=== PATIENT | female | born 1970 | race Caucasian/White ===

== ENCOUNTER → 2018-01-07 | Day surgery (SDC) | payer BC ==
[~2018-01-07] MED LIST: ACETAMINOPHEN 1000 MG/100 ML 100 ML IV ONE; ACETAMINOPHEN 1000 MG/100 ML IV ONE; ATENOLOL50 MG PO; ATORVASTATIN CA20 MG PO; BACITRACIN 50,000 UNIT VIAL ONE; BUPIVACAINE 0.25% 30ML SDV INJ ONE; CEFAZOLIN SOD 1 GM VIAL ONE; DEXAMETHASONE SOD PHOS INJ 4 MG/ML VIAL ONE; EPINEPHRINE HCL INJ 1 MG/ML AMP ONE; FENTANYL CITRATE/PF 100MCG/2 ML INJ ONE; LEVOTHYROXINE50 MCG PO; LIDOCAINE HCL 1% LOCAL INJ 20 ML VIAL ONE; LIDOCAINE HCL 2% LOCAL INJ 5 ML SDV VIAL INJ ONE; MELATONIN3 MG PO; MELOXICAM7.5 MG PO; MIDAZOLAM HCL 2 MG/2 ML VIAL ONE; MONTELUKAST SOD10 MG PO; MORPHINE SULFATE 2 MG/ML SYR ONE; OMEPRAZOLE40 MG PO; ONDANSETRON HCL INJ 2 MG/ML VIAL ONE; PROPOFOL IV EMULSION 10 MG/ML 20 ML VIAL ONE; ROCURONIUM BROMIDE 10 MG/ML 5ML VIAL ONE; SEVOFLURANE INHAL SOLN 250 ML PEN BTL ONE; SODIUM CHLORIDE 0.9% 500ML 500 ML ONE; TAMOXIFEN CITRA10 MG PO; ULTRACET TABLE1 EACH PO; VITAMIN D32000 UNIT PO; ZYRTEC10 M3 PO
[2018-01-07 13:45] LABS: BASOPHILS % 0.5 % (0.0-1.0); EOSINOPHILS # (AUTO) 0.1 (0.0-0.4); EOSINOPHILS % 1.1 % (0.0-6.0); HEMATOCRIT 36.5 % (34.2-44.1); HEMOGLOBIN 12.4 g/dL (12.0-16.0); LYMPHOCYTES # (AUTO) 2.1 (1.0-3.2); LYMPHOCYTES % 32.5 % (18.0-39.1); MEAN CORPUSCULAR HEMOGLOBIN 30.8 pg (28-32); MEAN CORPUSCULAR VOLUME 90.6 fL (81-99); MONOCYTES # (AUTO) 0.4 (0.2-0.8); MONOCYTES % 6.8 % (4.4-11.3); NEUTROPHILS # (AUTO) 3.8 (2.1-6.9); NEUTROPHILS % 58.8 % (38.7-80.0); PLATELET COUNT 270 x10e3/uL (140-360); RED BLOOD COUNT 4.03 x10e6/uL (3.6-5.1); RED CELL DISTRIBUTION WIDTH 12.3 % (11.7-14.4)
[2018-01-07 13:56] LABS: INR 0.98; PROTHROMBIN TIME 12.2 seconds (11.9-14.5)
[2018-01-07 13:57] LABS: PARTIAL THROMBOPLASTIN TIME 24.8 seconds (23.8-35.5)
[2018-01-07 14:06] LABS: ALANINE AMINOTRANSFERASE 22 IU/L (0-55); ALBUMIN 3.8 g/dL (3.5-5.0); ALBUMIN/GLOBULIN RATIO 1.1 (0.8-2.0); ALKALINE PHOSPHATASE 52 IU/L (40-150); ANION GAP 18.4 mmol/L (8-16); BLOOD UREA NITROGEN 10 mg/dL (7-26); BUN/CREATININE RATIO 12 (6-25); CALCIUM 9.3 mg/dL (8.4-10.2); CARBON DIOXIDE 20 mmol/L (22-29); CHLORIDE 106 mmol/L (98-107); CREATININE, SERUM 0.82 mg/dL (0.57-1.11); EST GLOMERULAR FILTRATION RATE > 60 ML/MIN (60-); GLUCOSE 103 mg/dL (74-118); POTASSIUM 4.4 mmol/L (3.5-5.1); SODIUM 140 mmol/L (136-145)
--- NOTE | 2018-01-10 15:55 | Operative Report ---
DATE OF PROCEDURE: January 07, 2018 PREOPERATIVE DIAGNOSES 1. History of left breast cancer. 2. Acquired absence of left breast. 3. Ruptured left breast tissue route cdl driver. POSTOPERATIVE DIAGNOSES 1. History of left breast cancer. 2. Acquired absence of left breast. 3. Ruptured left breast tissue route cdl driver. PROCEDURES PERFORMED 1. Removal of ruptured left breast tissue route cdl driver. 2. Revision of left breast reconstruction. 3. Left breast reconstruction with tissue route cdl driver, Paoli CPX4, medium height, 550 mL filled to 250 mL. SN number [id number]. AlloDerm regenerative tissue matrix, Contour medium thick ready to use, lot number [id number]. ANESTHESIA: General endotracheal. INDICATIONS FOR SURGERY: This is a 47-year-old female who last year underwent left breast mastectomy and immediate reconstruction with tissue route cdl driver and AlloDerm. The patient subsequently had radiation therapy to the left breast. After radiation, it was noted that the tissue route cdl driver on the left breast had ruptured. The patient is currently presenting for removal of ruptured left breast tissue route cdl driver, revision of left breast reconstruction and left breast reconstruction with new tissue route cdl driver, and AlloDerm. Risks, alternatives and possible complications of the above procedure were explained to the patient. These include, but are not limited to bleeding, infection, scarring, skin flap necrosis, capsular contracture, breast asymmetry, exposure or failure of tissue route cdl driver, wound dehiscence, unsatisfactory aesthetic result, and possible need for further surgery. The patient had an opportunity to ask questions and have her questions answered, and agreed to proceed with the proposed procedure. PROCEDURE IN DETAIL: The patient was marked in the preoperative holding area. She was then taken to the operating room and placed supine on the operating table. After adequate general anesthesia, the patient's bilateral breasts were prepped and draped in the usual surgical fashion. Attention was turned to the patient's left breast. An incision was made along the previous mastectomy incision with a #15 blade. Tissue was dissected down to breast capsule. Once the breast capsule was entered, it was noted again that the left breast tissue route cdl driver was ruptured. It was removed, and the breast pocket was irrigated with normal saline with antibiotic solution. A thick capsule was noted in the breast pocket. Revision of breast and reconstruction was performed by removing a large portion of the thickened breast capsule, especially medially and superiorly, but some also like laterally. The portion of the removed breast capsule was sent to pathology for permanent. The breast pocket was again irrigated with normal saline with antibiotic solution. The AlloDerm which was ready to use, Contour medium thick was then sutured along the inframammary fold with interrupted 2-0 PDS sutures. A #7 flat GRAHAM was placed through the previous drain hole and sutured in place with 2-0 nylon suture. The tissue route cdl driver which was Paoli CPX4 550 mL was filled with 100 mL of normal injectable saline, and placed in the subpectoral pocket. The AlloDerm was then sutured to the pectoralis major muscle with interrupted 2-0 PDS sutures. The mastectomy incision was then closed with 2 layers of interrupted 3-0 Vicryl sutures, and a running subcuticular 3-0 PDS suture. At the end of the case, all skin flaps appeared viable. The incision was covered with Xeroform, ABD pads, and the patient was wrapped with a large 6-inch Aron wrap. There were no immediate complications. The needle and instrument count was correct at the end of the case. She was transferred extubated to the recovery room. Job#: [id number] MANNY
== END | disposition home or self-care (01) ==
LOC: OR 12:22
PROVIDERS: ATTEND Plastic Surgery
DX: T85.898A Other specified complication of other internal prosthetic devices, implants and grafts, initial encounter (principal); I10 Essential (primary) hypertension; K21.9 Gastro-esophageal reflux disease without esophagitis; Y83.4 Other reconstructive surgery as the cause of abnormal reaction of the patient, or of later complication, without mention of misadventure at the time of the procedure; Z85.3 Personal history of malignant neoplasm of breast; Z90.12 Acquired absence of left breast and nipple; Z92.3 Personal history of irradiation
CPT/HCPCS: 15777; 19340; 36415; 80053; 84702; 85025; 85610; 85730; 88302; 93005; 99070; J0690; J1100; J2001; J2250; J2270; J2405; J7040; Q4116; 88304; J0171

== ENCOUNTER 2018-02-25 06:26 | Observation (INO) | payer BC ==
[~2018-02-25] VITALS: Ht 165.1 cm; Wt 109.1 kg
[~2018-02-25 06:26] MED LIST changes: -ACETAMINOPHEN 1000 MG/100 ML 100 ML IV ONE; -ACETAMINOPHEN 1000 MG/100 ML IV ONE; -BACITRACIN 50,000 UNIT VIAL ONE; -BUPIVACAINE 0.25% 30ML SDV INJ ONE; -CEFAZOLIN SOD 1 GM VIAL ONE; -DEXAMETHASONE SOD PHOS INJ 4 MG/ML VIAL ONE; -EPINEPHRINE HCL INJ 1 MG/ML AMP ONE; -FENTANYL CITRATE/PF 100MCG/2 ML INJ ONE; -LIDOCAINE HCL 1% LOCAL INJ 20 ML VIAL ONE; -LIDOCAINE HCL 2% LOCAL INJ 5 ML SDV VIAL INJ ONE; -MIDAZOLAM HCL 2 MG/2 ML VIAL ONE; -MORPHINE SULFATE 2 MG/ML SYR ONE; -ONDANSETRON HCL INJ 2 MG/ML VIAL ONE; -PROPOFOL IV EMULSION 10 MG/ML 20 ML VIAL ONE; -ROCURONIUM BROMIDE 10 MG/ML 5ML VIAL ONE; -SEVOFLURANE INHAL SOLN 250 ML PEN BTL ONE; -SODIUM CHLORIDE 0.9% 500ML 500 ML ONE
[2018-02-25] MEDS ORDERED: CEFAZOLIN SOD 1 GM VIAL ONE ×2 (06:53→17:04)
[2018-02-25] MEDS ORDERED: AMOXICILLIN (07:29)
[2018-02-25 07:58] LABS: BASOPHILS % 0.4 % (0.0-1.0); EOSINOPHILS # (AUTO) 0.2 (0.0-0.4); EOSINOPHILS % 2.9 % (0.0-6.0); HEMATOCRIT 35.3 % (34.2-44.1); HEMOGLOBIN 11.8 g/dL (12.0-16.0); LYMPHOCYTES # (AUTO) 1.8 (1.0-3.2); LYMPHOCYTES % 32.6 % (18.0-39.1); MEAN CORPUSCULAR HEMOGLOBIN 30.6 pg (28-32); MEAN CORPUSCULAR HGB CONC 33.4 g/dL (31-35); MEAN CORPUSCULAR VOLUME 91.5 fL (81-99); MONOCYTES # (AUTO) 0.4 (0.2-0.8); MONOCYTES % 7.5 % (4.4-11.3); NEUTROPHILS # (AUTO) 3.2 (2.1-6.9); NEUTROPHILS % 56.2 % (38.7-80.0); PLATELET COUNT 294 x10e3/uL (140-360); RED BLOOD COUNT 3.86 x10e6/uL (3.6-5.1); RED CELL DISTRIBUTION WIDTH 12.9 % (11.7-14.4)
[2018-02-25 08:16] LABS: INR 0.79; PROTHROMBIN TIME 11.7 seconds (11.9-14.5)
[2018-02-25 08:17] LABS: ALANINE AMINOTRANSFERASE 18 IU/L (0-55); ALBUMIN 3.6 g/dL (3.5-5.0); ALKALINE PHOSPHATASE 55 IU/L (40-150); ANION GAP 17.6 mmol/L (8-16); BLOOD UREA NITROGEN 11 mg/dL (7-26); BUN/CREATININE RATIO 14 (6-25); CALCIUM 8.9 mg/dL (8.4-10.2); CARBON DIOXIDE 23 mmol/L (22-29); CHLORIDE 105 mmol/L (98-107); CREATININE, SERUM 0.79 mg/dL (0.57-1.11); EST GLOMERULAR FILTRATION RATE > 60 ML/MIN (60-); GLUCOSE 112 mg/dL (74-118); PARTIAL THROMBOPLASTIN TIME 24.9 seconds (23.8-35.5); POTASSIUM 4.6 mmol/L (3.5-5.1); SODIUM 141 mmol/L (136-145)
[2018-02-25] MEDS ORDERED: BACITRACIN 50,000 UNIT VIAL ONE (08:37)
[2018-02-25] MEDS ORDERED: HYDROMORPHONE 2MG/ML 2 MG/ML ML ONE (09:42)
[2018-02-25] MEDS ORDERED: SODIUM CHLORIDE 0.9% 500ML 500 ML ONE (11:48)
[2018-02-25] MEDS ORDERED: FENTANYL CITRATE/PF 100MCG/2 ML INJ ONE ×2 (14:18→17:29)
[2018-02-25] MEDS ORDERED: MORPHINE SULFATE 2 MG/ML SYR IV PRN (15:15)
[2018-02-25 15:27] VITALS: BP 130/79
[2018-02-25] MEDS ORDERED: ONDANSETRON HCL INJ 2 MG/ML VIAL IV PRN (15:30)
[2018-02-25] MEDS ORDERED: TRAMADOL/APAP 37.5MG-325MG TAB PO PRN (15:30)
[2018-02-25 15:40] VITALS: BP 130/79
[2018-02-25] MEDS: DEXTROSE 5%/0.45% SOD CHL 1,000 ML IV SCH (16:13)
[2018-02-25 16:15] VITALS: BP 127/71
[2018-02-25] MEDS: CYCLOBENZAPRINE HCL 10 MG TAB PO PRN (17:00)
[2018-02-25] MEDS ORDERED: ACETAMINOPHEN 1000 MG/100 ML IV ONE (17:04)
[2018-02-25] MEDS ORDERED: PROPOFOL IV EMULSION 10 MG/ML 20 ML VIAL ONE (17:04)
[2018-02-25] MEDS ORDERED: LIDOCAINE HCL 2% LOCAL INJ 5 ML SDV VIAL INJ ONE (17:04)
[2018-02-25] MEDS ORDERED: DEXAMETHASONE SOD PHOS INJ 4 MG/ML VIAL ONE (17:04)
[2018-02-25] MEDS ORDERED: ROCURONIUM BROMIDE 10 MG/ML 5ML VIAL ONE (17:04)
[2018-02-25] MEDS ORDERED: ONDANSETRON HCL INJ 2 MG/ML VIAL ONE (17:04)
[2018-02-25] MEDS ORDERED: SEVOFLURANE INHAL SOLN 250 ML PEN BTL ONE (17:04)
[2018-02-25] MEDS ORDERED: MIDAZOLAM HCL 2 MG/2 ML VIAL ONE (17:29)
[2018-02-25] MEDS: HYDROCODONE/APAP 10MG-325MG TAB PO PRN ×2 (17:45→21:52)
[2018-02-25] MEDS ORDERED: CEFAZOLIN SOD 1 GM VIAL IV SCH (18:00)
[2018-02-25 20:00] VITALS: BP 150/72
[2018-02-25] MEDS ORDERED: DIPHENHYDRAMINE HCL 25 MG CAP PO PRN (20:00)
[2018-02-25] MEDS ORDERED: ATORVASTATIN 20 MG TAB PO SCH (21:00)
[2018-02-25] MEDS ORDERED: MELATONIN 3 MG TAB PO SCH (21:00)
[2018-02-25] MEDS ORDERED: MELATONIN 5 MG TABLET PO SCH (21:00)
[2018-02-25] MEDS ORDERED: CEFAZOLIN SOD 1 GM/D5W 50ML 50 ML IV SCH (22:00)
[2018-02-26] VITALS: BP 111/66
[2018-02-26] MEDS: DEXTROSE 5%/0.45% SOD CHL 1,000 ML IV SCH ×2 (02:32→11:15)
[2018-02-26] MEDS: CYCLOBENZAPRINE HCL 10 MG TAB PO PRN (02:35)
[2018-02-26] MEDS: HYDROCODONE/APAP 10MG-325MG TAB PO PRN ×2 (03:10→09:30)
[2018-02-26 04:00] VITALS: BP 104/58
[2018-02-26] MEDS ORDERED: LEVOTHYROXINE SODIUM 50 MCG TAB PO SCH (06:00)
[2018-02-26] MEDS ORDERED: PANTOPRAZOLE SOD 40 MG TABEC PO SCH (07:30)
[2018-02-26 08:06] VITALS: BP 141/71
[2018-02-26] MEDS ORDERED: TAMOXIFEN CITRATE 10 MG TAB PO SCH (09:00)
[2018-02-26] MEDS ORDERED: CHOLECALCIFEROL 1,000 UNIT TAB PO SCH (09:00)
[2018-02-26] MEDS ORDERED: MORPHINE SULFATE INJ 4 MG/ML INJ IV PRN (09:00)
[2018-02-26] MEDS ORDERED: LORATADINE 10 MG TAB PO SCH (09:00)
[2018-02-26] MEDS ORDERED: ATENOLOL 50 MG TAB PO SCH (09:00)
[2018-02-26] MEDS ORDERED: MONTELUKAST SODIUM 10 MG TAB PO SCH (09:00)
[2018-02-26 09:30] VITALS: BP 141/71
[2018-02-26] MEDS ORDERED: NORCO 10-325 T1 EACH PO (11:36)
[2018-02-26] MEDS ORDERED: CYCLOBENZAPRINE5 MG PO (11:37)
[2018-02-26] MEDS ORDERED: CLINDAMYCIN HC150 MG PO (11:39)
[2018-02-26 13:00] VITALS: BP 132/72
[2018-02-26] MEDS ORDERED: ATORVASTATIN 40 MG TAB PO SCH (21:00)
--- OUTSIDE RECORDS SUMMARY | 2018-03-16 07:34 | XMS REPORT | Clinical Summary ---
Author Author [facility] Organization [facility] Address Unknown Phone Unavailable Care Team Providers Care Psychological Operations Specialist Name Role Phone Aftab Dubois MD PCP Allergies Active Allergy Reactions Severity Noted Date Comments Other Other (See Comments) 09/15/2016 STERI STRIP-BLISTER Current Medications Prescription Sig. Disp. Refills Start End Date Status Date atenolol (TENORMIN) 50 MG Take 50 mg by mouth Active tablet daily. atorvastatin (LIPITOR) 40 Take 40 mg by mouth Active MG tablet nightly. buPROPion SR (WELLBUTRIN Take 150 mg by mouth Active SR) 150 MG 12 hr tablet daily. cetirizine (ZyrTEC) 10 MG Take 10 mg by mouth Active tablet daily. meloxicam (MOBIC) 7.5 mg Take 7.5 mg by mouth Active tablet daily. montelukast (SINGULAIR) Take 10 mg by mouth Active 10 mg tablet nightly. omeprazole (PriLOSEC) 40 Take 40 mg by mouth Active MG capsule daily. traMADol-acetaminophen Take 1 tablet by mouth Active (ULTRACET) 37.5-325 mg every 6 (six) hours as per tablet needed for moderate pain. tamoxifen (NOLVADEX) 20 Take by mouth daily. Active MG chemo tablet cholecalciferol, vitamin Take 1,000 Units by mouth Active D3, (VITAMIN D3) 1,000 daily. unit tablet gabapentin (NEURONTIN) Take 300 mg by mouth Active 300 mg capsule nightly - one time. melatonin 10 mg capsule Take by mouth. Active cyclobenzaprine Take 10 mg by mouth 3 08/28/19 Discontin (FLEXERIL) 10 mg tablet (three) times a day as 18 ued needed for muscle spasms. HYDROcodone-acetaminophen Take 1 tablet by mouth 08/28/19 Discontin (NORCO) 10-325 mg per every 6 (six) hours as 18 ued tablet needed for moderate pain. Active Problems Not on file Encounters Date Type Specialty Care Team Description 09/01/2017 Transcribe Access Silver Reinoso MD Arthralgia of hip, Orders unspecified laterality (Primary Dx) 08/27/2017 Hospital Radiology Chelsy Zamarripa, Personal history of Encounter malignant neoplasm of breast 07/30/2017 Transcribe Access Chelsy Zamarripa, Personal history of Orders malignant neoplasm of breast (Primary Dx) after 02/24/2017 Family History Medical History Relation Name Comments Basal cell carcinoma Brother Breast cancer Cousin Stomach cancer Cousin Melanoma Mother Heart attack Paternal Grandfather Prostate cancer Paternal Uncle Relation Name Status Comments Brother Cousin Cousin Mother Paternal Grandfather Paternal Uncle Social History Tobacco Use Types Packs/Day Years Used Date Never Smoker Smokeless Tobacco: Never Used Alcohol Use Drinks/Week oz/Week Comments Yes 1 Glasses of 0.6 4 GLASS OF WINE PER WEEK wine Sex Assigned at Date Recorded Not on file Last Filed Vital Signs Vital Sign Reading Time Taken Blood Pressure 153/71 08/27/2017 1:45 PM CDT Pulse 69 08/27/2017 1:45 PM CDT Temperature 37.2 C (99 F) 08/27/2017 12:45 PM CDT Respiratory Rate 18 08/27/2017 1:45 PM CDT Oxygen Saturation 97% 08/27/2017 1:45 PM CDT Inhaled Oxygen - - Concentration Weight 100 kg (221 lb 4.8 oz) 08/27/2017 9:51 AM CDT Height 167.6 cm (5' 6") 08/27/2017 9:51 AM CDT Body Mass Index 35.72 08/27/2017 9:51 AM CDT Plan of Treatment Health Maintenance Due Date Last Done Comments CERVICAL CANCER SCREENING 10/20/1991 INFLUENZA VACCINE 12/30/2017 Implants Implanted Type Area Petroleum Geologist Device Expiration Model / Identifier Date Serial / Lot Port [id number] Smart Port W/ Dtchd Implantabl N/A: N/A [employer] [id number] 0.4ml 6.6fr 55cm 1.4x2.2mm - [employer] / [id number] Ports or / Implanted: 09/15/2016 (Quantity not Accessorie on file) s Procedures Procedure Name Priority Date/Time Associated Diagnosis Comments IR PORT REMOVAL Routine 08/27/2017 Personal history of Results for this 1:01 PM CDT malignant neoplasm of procedure are in the breast results section. ZZESTIMATED GFR Routine 08/27/2017 Results for this 9:35 AM CDT procedure are in the results section. HCG QUALITATIVE, SERUM Routine 08/27/2017 Results for this SCREEN 9:35 AM CDT procedure are in the results section. PROTHROMBIN TIME WITH INR Routine 08/27/2017 Results for this 9:35 AM CDT procedure are in the results section. HC COMPLETE BLD COUNT Routine 08/27/2017 Results for this W/AUTO DIFF 9:35 AM CDT procedure are in the results section. BASIC METABOLIC PANEL Routine 08/27/2017 Results for this 9:35 AM CDT procedure are in the results section. after 02/24/2017 Results * IR Port Removal (08/27/2017 1:01 PM) Narrative Performed At EXAMINATION:IR PORT REMOVAL HM RADIANT REASON FOR EXAMINATION:Z85.3 Personal history of malignant neoplasm of breast, Z85.3 COMPARISON: None TECHNIQUE: The patient was brought to the vascular suite. An informed consent was obtained. The skin overlying the right infraclavicular region was prepped and draped in a sterile manner. The skin was anesthetized 1% lidocaine. Using blunt dissection, the chest port was dissected freely. The chest port was then removed. The patient tolerated the procedure well. Hemostasis was obtained. The patient will be discharged from the radiology department in stable condition. CONSCIOUS SEDATION: The patient was given conscious sedation with fentanyl and Versed intravenously. Constant nurse observation was performed.Throughout the conscious sedation duration, the patient was continuously monitored by a registered nurse.The physician intraservice [id number] time with the patient was 20 minutes. Fluoroscopy time:0.1 minutes number of fluoroscopic images obtained: 2 IMPRESSION: 1. Removal of aRIGHT chest port 2. Conscious sedation was given as described above. 3. Constant nurse observation was performed. [id number] Procedure Note Hm Interface, Radiology Results Incoming - 08/27/2017 5:10 PM CDT EXAMINATION: IR PORT REMOVAL REASON FOR EXAMINATION: Z85.3 Personal history of malignant neoplasm of breast, Z85.3 COMPARISON: None TECHNIQUE: The patient was brought to the vascular suite. An informed consent was obtained. The skin overlying the right infraclavicular region was prepped and draped in a sterile manner. The skin was anesthetized 1% lidocaine. Using blunt dissection, the chest port was dissected freely. The chest port was then removed. The patient tolerated the procedure well. Hemostasis was obtained. The patient will be discharged from the radiology department in stable condition. CONSCIOUS SEDATION: The patient was given conscious sedation with fentanyl and Versed intravenously. Constant nurse observation was performed. Throughout the conscious sedation duration, the patient was continuously monitored by a registered nurse. The physician intraservice hlfz-nl-[id number] time with the patient was 20 minutes. Fluoroscopy time: 0.1 minutes number of fluoroscopic images obtained: 2 IMPRESSION: 1. Removal of aRIGHT chest port 2. Conscious sedation was given as described above. 3. Constant nurse observation was performed. [id number] Performing Organization Address City/[facility]/Zipcode Phone Number [facility] [address] [place] [address] * Estimated GFR (08/27/2017 9:35 AM) GFR Non Af Amer 67 mL/min/1.73 m2 [facility] DEPARTMENT OF PATHOLOGY AND GENOMIC MEDICINE GFR Af Amer 81 mL/min/1.73 m2 [facility] DEPARTMENT OF Comment: PATHOLOGY AND Chronic kidney disease: <60 GENOMIC MEDICINE mL/min/1.73m2 Kidney failure: <15 mL/min/1.73m2 The estimated GFR is calculated from the IDMS-traceable Modification of Diet in Renal Disease Equation. The accuracy of the calculation is poor when the creatinine is normal. Calculated values >90 mL/min/1.73m2 are not reported. This equation has not been validated in children (<18 years), women, the elderly (>70 years), or ethnic groups other than Caucasians and Americans. Specimen Plasma specimen Performing Organization Address City/[facility]/Zipcode Phone Number [address] [place] [address] PATHOLOGY AND GENOMIC MEDICINE * Prothrombin time with INR (08/27/2017 9:35 AM) Prothrombin time 12.7 12.0 - 15.0 sec [facility] DEPARTMENT OF PATHOLOGY AND GENOMIC MEDICINE INR 0.9 [facility] DEPARTMENT OF Comment: PATHOLOGY AND The International Normalized GENOMIC MEDICINE Ratio (INR) is a therapeutic monitoring tool for patients who are stable on oral anticoagulant therapy. An INR of 2.0-3.0 is suggested for deep vein thrombosis/pulmonary embolism. Specimen Blood Performing Organization Address City/[facility]/Zipcode Phone Number [address] [place] [address] [facility] * CBC with platelet and differential (08/27/2017 9:35 AM) WBC 5.18 4.50 - 11.00 k/uL [facility] DEPARTMENT OF PATHOLOGY AND GENOMIC MEDICINE RBC 4.01 (L) 4.20 - 5.50 m/uL [facility] OF PATHOLOGY AND GENOMIC MEDICINE HGB 12.2 12.0 - 16.0 g/dL [facility] DEPARTMENT OF PATHOLOGY AND GENOMIC MEDICINE HCT 36.7 (L) 37.0 - 47.0 % [facility] DEPARTMENT OF PATHOLOGY AND GENOMIC MEDICINE MCV 91.5 82.0 - 100.0 fL [facility] DEPARTMENT OF PATHOLOGY AND GENOMIC MEDICINE MCH 30.4 27.0 - 34.0 pg [facility] DEPARTMENT OF PATHOLOGY AND GENOMIC MEDICINE MCHC 33.2 31.0 - 37.0 g/dL [facility] DEPARTMENT OF PATHOLOGY AND GENOMIC MEDICINE RDW - SD 41.9 37.0 - 55.0 fL [facility] DEPARTMENT OF PATHOLOGY AND GENOMIC MEDICINE MPV 8.7 (L) 8.8 - 13.2 fL [facility] DEPARTMENT OF PATHOLOGY AND GENOMIC MEDICINE Platelet count 255 150 - 400 k/uL [facility] DEPARTMENT OF PATHOLOGY AND GENOMIC MEDICINE Nucleated RBC 0.00 /100 WBC [facility] DEPARTMENT OF PATHOLOGY AND GENOMIC MEDICINE Neutrophils 62.6 39.0 - 69.0 % [facility] DEPARTMENT OF PATHOLOGY AND GENOMIC MEDICINE Lymphocytes 29.5 25.0 - 45.0 % [facility] DEPARTMENT OF PATHOLOGY AND GENOMIC MEDICINE Monocytes 5.8 0.0 - 10.0 % [facility] DEPARTMENT OF PATHOLOGY AND GENOMIC MEDICINE Eosinophils 1.7 0.0 - 5.0 % [facility] DEPARTMENT OF PATHOLOGY AND GENOMIC MEDICINE Basophils 0.4 0.0 - 1.0 % [facility] DEPARTMENT OF PATHOLOGY AND GENOMIC MEDICINE Specimen Blood Performing Organization Address City/[facility]/Zipcode Phone Number [place] [address] [address] PATHOLOGY AND [employer] [facility] * hCG qualitative, serum screen (08/27/2017 9:35 AM) hCG qualitative, serum NegativeComment: [facility] DEPARTMENT OF [id number] PATHOLOGY AND GENOMIC MEDICINE Specimen Blood Performing Organization Address [facility]/Zipcode Phone Number [facility] [address] [place] [address] PATHOLOGY AND GENOMIC MEDICINE * Basic metabolic panel (08/27/2017 9:35 AM) Sodium 142 135 - 148 mEq/L [facility] DEPARTMENT OF PATHOLOGY AND GENOMIC MEDICINE Potassium 4.7 3.5 - 5.0 mEq/L [facility] DEPARTMENT OF PATHOLOGY AND GENOMIC MEDICINE Chloride 104 98 - 112 mEq/L [facility] DEPARTMENT OF PATHOLOGY AND GENOMIC MEDICINE CO2 27 24 - 31 mEq/L [facility] DEPARTMENT OF PATHOLOGY AND GENOMIC MEDICINE Anion gap 11 7 - 15 mEq/L [facility] DEPARTMENT OF Comment: PATHOLOGY AND Starting from August [facility] MEDICINE , anion gap calculation no longer incorporates potassium. Please note the change. BUN 14 6 - 20 mg/dL [facility] DEPARTMENT OF PATHOLOGY AND GENOMIC MEDICINE Creatinine 0.9 0.5 - 0.9 mg/dL [facility] DEPARTMENT OF PATHOLOGY AND GENOMIC MEDICINE Glucose 105 (H) 65 - 99 mg/dL [facility] DEPARTMENT OF PATHOLOGY AND GENOMIC MEDICINE Calcium 9.3 8.3 - 10.2 mg/dL [facility] DEPARTMENT OF PATHOLOGY AND GENOMIC MEDICINE Specimen Plasma specimen Performing Organization Address City/[facility] [email or web address] Phone Number [facility] [address] [place] [address] PATHOLOGY AND GENOMIC MEDICINE after 02/24/2017 Insurance Payer Benefit Subscriber ID Type Phone Address Plan / Group BCBS BCBS xxxxxxxxxxxx PPO CHOICE PPO/[employer]SU[employer]O STORY Work: [id number] [address] [facility] [address] [place] [id number] Home:
--- OUTSIDE RECORDS SUMMARY | 2018-03-16 07:35 | XMS REPORT | Summary of Care ---
Author Author [facility] Address Unknown Phone Unavailable Encounter HQ Lauren(FIN) [id number] Date(s): 07/07/17 - 07/07/17 [facility] Outpatient Imaging [facility] [address] [place] [phone] Encounter Diagnosis Malignant neoplasm of upper-outer quadrant of left female breast (Final) - 07/10/17 Acquired absence of left breast and nipple (Final) - Estrogen receptor positive status [ER+] (Final) - Family history of malignant neoplasm of breast (Final) - Discharge Disposition: Home or Self Care Attending Physician: Maritza Lara MD Vital Signs No data available for this section Problem List Condition Effective Dates Status Health Status Informant Surgery Active follow-up(Confirmed) Allergies, Adverse Reactions, Alerts Substance Reaction Severity Status NKDA Active Medications No data available for this section Results No data available for this section Immunizations No data available for this section Procedures Procedure Date Related Diagnosis Body Site Status Biopsy of breast Completed Social History Social History Type Response Alcohol Current, Type Wine. Frequency: 3-5 times per week. Smoking Status Never smoker; Exposure to Tobacco Smoke None; Cigarette Smoking Last 365 Days No; Reg Smoking Cessation Counseling No entered on: 08/28/16 Assessment and Plan No data available for this section
--- OUTSIDE RECORDS SUMMARY | 2018-03-16 07:35 | XMS REPORT | Summary of Care ---
Author Author [facility] Organization [facility] Address Unknown Phone Unavailable Encounter HQ Encntr_alias(FIN) [id number] Date(s): 08/11/16 - 08/11/16 [facility] [address] [place] [address]- Discharge Disposition: Home or Self Care Attending Physician: Chelsy Zamarripa MD Referring Physician: Physician, Non Associated MD Vital Signs No data available for this section Problem List No data available for this section Allergies, Adverse Reactions, Alerts No data available for this section Medications No data available for this section Results URINE CHEM Most recent to 1 oldest [Reference Range]: U Preg [Negative] Negative (08/11/16 12:50 PM) Immunizations No data available for this section Procedures No data available for this section Social History No data available for this section Assessment and Plan No data available for this section
--- OUTSIDE RECORDS SUMMARY | 2018-03-16 07:35 | XMS REPORT | Continuity of Care Document ---
Author Author [facility] Organization Interface Address Unknown Phone Unavailable Problems Problem Status Onset Date Classification Date Reported Comments Source Malignant neoplasm of upper-outer quadrant of left female breast 07/11/2017 10/13/2017 [facility] UNK Active 08/20/2016 [facility] Z85.3 PERSONAL HISTORY OF MALIGNANT NEOP Active 08/11/2016 [facility] C50.412 - MALIG NEOPLASM OF UPPER-OUTER Active 07/08/2016 [facility] Acquired absence of left breast and nipple 10/13/2017 [facility] Estrogen receptor positive status [ER+] 10/13/2017 [facility] Family history of malignant neoplasm of breast 10/13/2017 [facility] follow-up Active Problem 10/13/2017 [facility] Medications Medication Details Route Status Patient Instructions Ordering Provider Order Date Source Cyclobenzaprine hydrochloride 10 MG Oral Tablet [Flexeril] 10 mg=1 tab, PO, TID, PRN for spasm, # 30 tab, 0 Refill(s), given to patient Active 08/29/2016 [facility] Acetaminophen 325 MG / Hydrocodone Bitartrate 10 MG Oral Tablet [[place] 10/325] 1 tab, PO, Q4H, PRN for pain, X 4 day, # 24 tab, 0 Refill(s), given to patient Active 08/29/2016 [facility] Amoxicillin 875 MG / Clavulanate 125 MG Oral Tablet [Augmentin 875-mg] 875 mg=1 tab, PO, Q24H, X 10 day, # 10 tab, 0 Refill(s), given to patient Active 08/29/2016 [facility] Acetaminophen 300 MG / Codeine Phosphate 30 MG Oral Tablet 1 tab, PO, Q4H, PRN Pain, X 7 day, # 42 tab, 0 Refill(s) Active 08/29/2016 [facility] Ancef + sodium chloride 0.9% INJ 100 mL 1 gm, Route: IVPB, ABXQ8H, Dosing Weight 96.534, kg, Start date: 08/28/16 21:00:00 CDT, Duration: 2 doses or times, Stop date: 08/29/16 5:00:00 CDTNotes: (Same As: Mallika Bullock) MEDICATION WASTE Product Size: 1000 mg Product Wasted: ___ mg No Longer Active 08/29/2016 [facility] Zofran 4 mg, 2 mL, Route: IVP, Drug form: INJ, Q6H, Dosing Weight 96.534, kg, PRN Nausea, Start date: 08/28/16 13:29:00 CDT, Duration: 30 day, Stop date: 09/27/16 13:28:00 CDTNotes: (Same as: Zofran) MEDICATION WASTE Product Size: 4 mg Product Wasted: ___ mg No Longer Active 08/28/2016 [facility] Valium 5 mg, 1 tab, Route: PO, Drug form: TAB, Q8H, Dosing Weight 96.534, kg, PRN Anxiety, Start date: 08/28/16 13:28:00 CDT, Duration: 30 day, Stop date: 09/27/16 13:27:00 CDTNotes: (Same as: Valium) No Longer Active 08/28/2016 [facility] Acetaminophen 325 MG / Hydrocodone Bitartrate 5 MG Oral Tablet [[place] 5/325] 2 tab, Route: PO, Drug Form: TAB, Dosing Weight 96.534, kg, Q4H, PRN Pain Score 4-6, Start date: 08/28/16 13:27:00 CDT, Duration: 30 day, Stop date: 09/27/16 13:26:00 CDTNotes: (Same as: [place] 325/5) Do not exceed 4gm/day of acetaminophen. No Longer Active 08/28/2016 [facility] Morphine 2 mg, 1 mL, Route: IVP, Drug form: INJ, Q2H, Dosing Weight 96.534, kg, PRN Pain Score 4-6, Start date: 08/28/16 13:26:00 CDT, Duration: 30 day, Stop date: 09/27/16 13:25:00 CDTNotes: (Same as:MORPhine Sulfate) No Longer Active 08/28/2016 [facility] Sodium Chloride 0.154 MEQ/ML Injectable Solution 1,000 mL, Rate: 100 ml/hr, Infuse over: 10 hr, Route: IV, Dosing Weight 96.534 kg, Total Volume: 1,000, Start date: 08/28/16 13:24:00 CDT, Duration: 30 day, Stop date: 09/27/16 13:23:00 CDT No Longer Active 08/28/2016 [facility] Fentanyl 50 microgram, 1 mL, Route: IVP, Drug form: INJ, Q5Min, Dosing Weight 96.534, kg, PRN Pain Score 4-6, Start date: 08/28/16 13:18:00 CDT, Duration: 4 doses or times, Stop date: 08/29/16 0:00:00 CDT, Pedia tric DosingNotes: (Same as: Sublimaze) Preservative free. No Longer Active 08/28/2016 [facility] Hydromorphone 0.5 mg, Route: IVP, Q5Min, Dosing Weight 96.534, kg, PRN Pain Score 7-10, Start date: 08/28/16 13:17:00 CDT, Duration: 4 doses or times, Stop date: Limited # of times Inactive 08/28/2016 [facility] Flumazenil 0.2 mg, Route: IVP, PRN, Dosing Weight 96.534, kg, PRN Benzodiazepine Reversal, Initial dose, Start date: 08/28/16 13:17:00 CDT, Duration: 30 day, Stop date: 09/27/16 13:16:00 CDT Inactive 08/28/2016 [facility] Diphenhydramine 12.5 mg, Route: IVP, Drug form: INJ, Q6H, Dosing Weight 96.534, kg, PRN Itching, Start date: 08/28/16 13:17:00 CDT, Duration: 30 day, Stop date: 09/27/16 13:16:00 CDT Inactive 08/28/2016 [facility] Albuterol 0.83 MG/ML Inhalant Solution 2.49 mg, Route: NEB, Q20Min, Dosing Weight 96.534, kg, PRN Wheezing, Priority: STAT, Start date: 08/28/16 13:17:00 CDT, Duration: 30 day, Stop date: 09/27/16 13:16:00 CDT Inactive 08/28/2016 [facility] Naloxone 0.4 mg, Route: IVP, Q2MIN, Dosing Weight 96.534, kg, PRN Narcotic Reversal, Start date: 08/28/16 13:17:00 CDT, Duration: 8 doses or times, Stop date: Limited # of times Inactive 08/28/2016 [facility] Promethazine 6.25 mg, Route: IVPB, ONCE, Dosing Weight 96.534, kg, PRN Nausea & Vomiting, Start date: 08/28/16 13:17:00 CDT Inactive 08/28/2016 [facility] Ondansetron 4 mg, Route: IVP, ONCE, Dosing Weight 96.534, kg, PRN Nausea & Vomiting, Start date: 08/28/16 13:17:00 CDT Inactive 08/28/2016 [facility] Acetaminophen 1,000 mg, Route: PO, Drug form: TAB, ONCE, Dosing Weight 96.534, kg, PRN Pain Score 1-3, Start date: 08/28/16 13:17:00 CDT, Duration: 1 doses or times, Stop date: Limited # of times Inactive 08/28/2016 [facility] Oxycodone 5 mg, Route: PO, Drug form: TAB, Q4H, Dosing Weight 96.534, kg, PRN Pain Score 4-6, Start date: 08/28/16 13:17:00 CDT, Duration: 30 day, Stop date: 09/27/16 13:16:00 CDT Inactive 08/28/2016 [facility] Calcium Chloride 0.0014 MEQ/ML / Potassium Chloride 0.004 MEQ/ML / Sodium Chloride 0.103 MEQ/ML / Sodium Lactate 0.028 MEQ/ML Injectable Solution 1,000 mL, Rate: 125 ml/hr, Infuse over: 8 hr, Route: IV, Dosing Weight 96.534 kg, Total Volume: 1,000, Start date: 08/28/16 13:17:00 CDT, Duration: 30 day, Stop date: 09/27/16 13:16:00 CDT Inactive 08/28/2016 [facility] Hydralazine 10 mg, Route: IVP, Q20Min, Dosing Weight 96.534, kg, PRN Elevated BP, Start date: 08/28/16 13:17:00 CDT, Duration: 2 doses or times, Stop date: Limited # of times Inactive 08/28/2016 [facility] esmolol 10 mg, Route: IVP, Q5Min, Dosing Weight 96.534, kg, PRN Other -See Comment, Start date: 08/28/16 13:17:00 CDT, Duration: 5 doses or times, Stop date: Limited # of times Inactive 08/28/2016 [facility] Labetalol 10 mg, Route: IVP, Q5Min, Dosing Weight 96.534, kg, PRN Elevated BP, Start date: 08/28/16 13:17:00 CDT, Duration: 5 doses or times, Stop date: Limited # of times Inactive 08/28/2016 [facility] ePHEDrine (ANES) Route: IV, Drug form: INJ, ONCE, Stop date: 08/28/16 12:03:00 CDT Inactive 08/28/2016 [facility] acetaminophen (ANES) Route: IV, Drug form: INJ, ONCE, Stop date: 08/28/16 11:38:00 CDT Inactive 08/28/2016 [facility] scopolamine (ANES) Route: RIGHT EAR, Drug form: ERFILM, ONCE, Stop date: 08/28/16 10:28:00 CDT Inactive 08/28/2016 [facility] ondansetron (ANES) Route: IV, Drug form: INJ, ONCE, Stop date: 08/28/16 10:28:00 CDT Inactive 08/28/2016 [facility] dexamethasone (ANES) Route: IV, Drug form: INJ, ONCE, Stop date: 08/28/16 10:28:00 CDT Inactive 08/28/2016 [facility] metoclopramide (ANES) Route: IV, Drug form: INJ, ONCE, Stop date: 08/28/16 10:28:00 CDT Inactive 08/28/2016 [facility] propofol (ANES) Route: IV, Drug form: INJ, ONCE, Stop date: 08/28/16 10:18:00 CDT Inactive 08/28/2016 [facility] ceFAZolin (ANES) Route: IV, Drug form: INJ, ONCE, Stop date: 08/28/16 10:18:00 CDT Inactive 08/28/2016 [facility] rocuronium (ANES) Route: IV, Drug form: INJ, ONCE, Stop date: 08/28/16 10:18:00 CDT Inactive 08/28/2016 [facility] succinylcholine (ANES) Route: IV, Drug form: INJ, ONCE, Stop date: 08/28/16 10:18:00 CDT Inactive 08/28/2016 [facility] fentaNYL (ANES) Route: IV, Drug form: INJ, ONCE, Stop date: 08/28/16 10:18:00 CDT Inactive 08/28/2016 [facility] midazolam (ANES) Route: IV, Drug form: SOLN, ONCE, Stop date: 08/28/16 9:58:00 CDT Inactive 08/28/2016 [facility] LR 1000 mL INJ (ANES) Route: IV, Total Volume: 1,000, Start date: 08/28/16 9:27:00 CDT, Stop date: 08/28/16 10:27:00 CDT Inactive 08/28/2016 [facility] Albuterol 0.833 MG/ML / Ipratropium [place] 0.167 MG/ML Inhalant Solution 3 mL, Route: NEB, Dosing Weight 96.534, kg, ONCE, STAT, Start date: 08/28/16 7:56:00 CDT, Stop date: 08/28/16 7:56:00 CDT Inactive 08/28/2016 [facility] Calcium Chloride 0.0014 MEQ/ML / Potassium Chloride 0.004 MEQ/ML / Sodium Chloride 0.103 MEQ/ML / Sodium Lactate 0.028 MEQ/ML Injectable Solution 1,000 mL, Rate: 25 ml/hr, Infuse over: 40 hr, Route: IV, Dosing Weight 96.534 kg, Total Volume: 1,000, Start date: 08/28/16 7:56:00 CDT, Duration: 30 day, Stop date: 09/27/16 7:55:00 CDT Inactive 08/28/2016 [facility] methylene blue 10 mg/mL injectable solution 100 mg, 20 mL, Route: InFILtration(local), Drug form: SOLN, ONCE, Dosing Weight 96.534, kg, Start date: 08/28/16 7:06:00 CDT, Stop date: 08/28/16 7:06:00 CDTNotes: (Same as :ProvayBlue) MEDICATION WASTE Product Size: 50 mg Product Wasted: ___ mg Inactive 08/28/2016 [facility] iso-sulfan blue 5 mg, 0.5 mL, Route: SUB-Q, Drug form: INJ, PRN, Dosing Weight 96.534, kg, PRN Other -See Comment, Start date: 08/27/16 15:43:00 CDT, Duration: 1 doses or times, Stop date: Limited # of timesNotes: ( Same as:Lymphazurin) MEDICATION WASTE Product Size: 50 mg Product Wasted: _45__ mg No Longer Active 08/27/2016 [facility] Alprazolam 0.5 MG Oral Tablet [Xanax] 0.5 mg=1 tab, PO, TID, 0 Refill(s) Active 08/22/2016 [facility] Acetaminophen 325 MG / tramadol hydrochloride 37.5 MG Oral Tablet 1 tab, PO, Q4H, 0 Refill(s) No Longer Active 08/22/2016 [facility] meloxicam 7.5 mg oral tablet 7.5 mg=1 tab, PO, Daily Active 08/22/2016 [facility] cetirizine 10 mg oral tablet 10 mg=1 tab, PO, Daily, 0 Refill(s) Active 08/22/2016 [facility] montelukast 10 MG Oral Tablet [Singulair] 10 mg=1 tab, PO, Daily, 0 Refill(s) Active 08/22/2016 [facility] 24 HR Bupropion Hydrochloride 150 MG Extended Release Tablet [Wellbutrin] 150 mg=1 tab, PO, Q24H, 0 Refill(s) Active 08/22/2016 [facility] Atenolol 50 MG Oral Tablet 50 mg=1 tab, PO, Daily, 0 Refill(s) Active 08/22/2016 [facility] atorvastatin 40 MG Oral Tablet [Lipitor] 40 mg=1 tab, PO, Daily, 0 Refill(s) Active 08/22/2016 [facility] Omeprazole 40 mg, PO, Daily, 0 Refill(s) Active 08/22/2016 [facility] Allergies, Adverse Reactions, Alerts Substance Category Reaction Severity Reaction type Status Date Reported Comments Source Immunizations Immunization Date Given Site Status Last Updated Comments Source Results Order Name Results Value Reference Range Date Interpretation Comments Source Breast Complete Uni US Breast Complete Uni US COMPLETE ULTRASOUND OF RIGHT BREAST AND AXILLA: 07/07/2017 CLINICAL: /C50.412 Malignant Neoplasm Of Upper-Outer Quadrant Of Left Female Breast HISTORY: 46 yo female with history of multifocal LEFT breast invasive lobular carcinoma treated with chemotherapy, radiation and mastectomy. Completed XRT 03/20/17. Taking Tamoxifen since 04/17. Family history of breast cancer includes: Maternal great aunt at age 60's, Maternal aunt at age 53, 2 second Cousins at ages 40's. COMPARISON:Comparison is made to exams dated: 07/10/2016 mammogram - [facility], 06/17/2016 mammogram, 05/30/2016 mammogram, 05/29/2015 mammogram, 05/05/2014 mammogram, and 04/20/2014 mammogram - [facility]. RIGHT BREAST AND AXILLA FINDINGS: The entire right breast was evaluated including all four quadrants, axillary tail, retroareolar region and axilla. No abnormalities that would be suspicious for malignancy were identified. No axillary adenopathy. IMPRESSION: BENIGN 1. THERE IS NO DEFINITE RADIOGRAPHIC OR SONOGRAPHIC EVIDENCE TO SUGGEST MALIGNANCY IN THE RIGHT BREAST AND NO SIGNIFICANT CHANGE. 2. LEFT MASTECTOMY, 2016. RECOMMENDATION: A RIGHT mammogram and RIGHT breast ultrasound in one year. I personally reviewed the imaging findings and recommendations with the patient. I emphasized to her to practice monthly self-examinations and to return immediately if she should note any concerning changes. Elizabeth Paulino M.D. sg/:07/08/2017 11:37:26 Reprographics Associate(s): Felisa Seay R.D.M.S, [facility]; Deidre Mckeon, [facility] letter sent: BI-RADS 1/2 Dense Ultrasound BI-RADS: 2 Benign 07/07/2017 - - Read by: Elizabeth Paulino MD Dictated Date/time: 07/08/17 11:37 Electronically Signed by: Elizabeth Paulino MD 07/08/17 11:37 FINAL REPORT [facility] Breast Mammo Diag UNI incl CAD MA Breast Mammo Diag UNI incl CAD MA UNILATERAL RIGHT DIGITAL DIAGNOSTIC MAMMOGRAM WITH CAD: 07/07/2017 CLINICAL: /C50.412 Malignant Neoplasm Of Upper-Outer Quadrant Of Left Female Breast HISTORY: 46 yo female with history of multifocal LEFT breast invasive lobular carcinoma treated with chemotherapy, radiation and mastectomy. Completed XRT 03/20/17. Taking Tamoxifen since 04/17. Family history of breast cancer includes: Maternal great aunt at age 60's, Maternal aunt at age 53, 2 second Cousins at ages 40's. Current study was evaluated with a Computer Aided Detection (CAD) system. COMPARISON:Comparison is made to exams dated: 07/10/2016 mammogram - [facility], 06/17/2016 mammogram, 05/30/2016 mammogram, 05/29/2015 mammogram, 05/05/2014 mammogram, and 04/20/2014 mammogram - [facility]. TECHNIQUE: Mammographic views were obtained using digital acquisition. Current study was also evaluated with a Computer Aided Detection (CAD) system. FINDINGS: The tissue of right breast is heterogeneously dense, which could obscure detection of small masses. Infusion port projected over upper chest wall on MLO view. No significant masses, calcifications, or other findings are seen in the breast. IMPRESSION: BENIGN PLEASE SEE SAME DAY ULTRASOUND REPORT. Elizabeth Paulino M.D. sg/:07/08/2017 11:37:26 Reprographics Associate(s): Felisa Seay R.D.M.S, [facility]; Deidre Mckeon, [facility] letter sent: BI-RADS 1/2 Dense Mammogram BI-RADS: 2 Benign 07/07/2017 - - Read by: Elizabeth Paulino MD Dictated Date/time: 07/08/17 11:37 Electronically Signed by: Elizabeth Paulino MD 07/08/17 11:37 FINAL REPORT [facility] URINE CHEM U Preg Negative (08/28/16 7:38 AM) Negative 08/28/2016 [facility] Breast specimen surgery Breast specimen surgery - BREAST SPECIMEN SURGERY UNI-PLANAR RADIOGRAPH SPECIMEN IMAGING LEFT BREAST- POST LUMPECTOMY: 08/28/2016 CLINICAL: Left breast cancer. Correlation is made to exams dated: 08/04/2016 ultrasound biopsy, 08/04/2016 MRI biopsy, 07/17/2016 ultrasound biopsy, 07/17/2016 fine needle aspiration, 07/10/2016 breast MRI and 07/10/2016 ultrasound - [facility]. A surgical specimen was imaged using uni-planar radiograph specimen imaging for the concerning region located in the left axilla. This was described on the previous mammography, ultrasound and biopsy reports. IMPRESSION: UNI-PLANAR RADIOGRAPH SPECIMEN IMAGING The imaged specimen includes 2 previously placed biopsy clips and a single surgical clip. The specimen shows characteristics of the mammographic findings. Continued treatment planning per Dr. Lara's recommendations. Continued oncologic consultation is also recommended. Follow up with ACR/SBI guidelines. Ben lakhanit/:09/17/2016 14:23:31 Reprographics Associate: Lisette Roman, [facility] This exam was dictated and interpreted by [id number] for [facility]. 08/28/2016 - - Read by: Ben Hi MD Dictated Date/time: 09/17/16 14:23 Electronically Signed by: Ben Hi MD 09/17/16 14:23 FINAL REPORT [facility] ELECTROLYTES Sodium Lvl 138 meq/L 135 - 145 08/22/2016 [facility] ELECTROLYTES Potassium Lvl 4.3 meq/L 3.5 - 5.1 08/22/2016 [facility] ELECTROLYTES BUN 11 mg/dL 7 - 22 08/22/2016 [facility] ELECTROLYTES Creatinine Lvl 0.82 mg/dL 0.50 - 1.40 08/22/2016 [facility] ELECTROLYTES Glucose Lvl 97 mg/dL 70 - 99 08/22/2016 [facility] ELECTROLYTES Total Protein 7.4 g/dL 6.4 - 8.4 08/22/2016 [facility] ELECTROLYTES Albumin Lvl 3.5 g/dL 3.5 - 5.0 08/22/2016 [facility] ELECTROLYTES Calcium Lvl 8.3 mg/dL 8.5 - 10.5 08/22/2016 [facility] ELECTROLYTES Chloride Lvl 105 meq/L 95 - 109 08/22/2016 [facility] ELECTROLYTES CO2 24 meq/L 24 - 32 08/22/2016 [facility] ELECTROLYTES Alk Phos 73 unit/L 39 - 136 08/22/2016 [facility] ELECTROLYTES Bili Total 0.5 mg/dL 0.2 - 1.3 08/22/2016 [facility] ELECTROLYTES ALT 22 unit/L 0 - 65 08/22/2016 [facility] ELECTROLYTES AST 27 unit/L 0 - 37 08/22/2016 [facility] eGFR 87 mL/min/1.73m2 08/22/2016 Result Comment: The eGFR is calculated using the CKD-EPI formula. In most young, healthy individuals the eGFR will be >90 mL/min/1.73m2. The eGFR declines with age. An eGFR of 60-89 may be normal in some populations, particularly the elderly, for whom the CKD-EPI formula has not been extensively validated. Use of the eGFR is not recommended in the following populations: Individuals with unstable creatinine concentrations, including patients and those with serious co-morbid conditions. Patients with extremes in muscle mass or diet. The data above are obtained from the National Kidney Disease Education Program (NKDEP) which additionally recommends that when the eGFR is used in patients with extremes of body mass index for purposes of drug dosing, the eGFR should be multiplied by the estimated BMI. [facility] ELECTROLYTES Globulin 3.9 g/dL 2.7 - 4.2 08/22/2016 [facility] ELECTROLYTES A/G Ratio 0.9 0.7 - 1.6 08/22/2016 [facility] AGAP 13.3 meq/L 10.0 - 20.0 08/22/2016 [facility] ELECTROLYTES B/C Ratio 13 6 - 25 08/22/2016 [facility] MCHC 33.7 g/dL 32.0 - 36.0 08/22/2016 [facility] Platelet 331 K/CMM 133 - 450 08/22/2016 [facility] RDW 12.8 % 11.5 - 14.5 08/22/2016 [facility] MPV 7.6 fL 7.4 - 10.4 08/22/2016 [facility] WBC 9.5 K/CMM 3.7 - 10.4 08/22/2016 [facility] Hct 37.5 % 36.0 - 48.0 08/22/2016 [facility] Hgb 12.6 g/dL 12.0 - 16.0 08/22/2016 [facility] RBC 4.16 M/CMM 4.20 - 5.40 08/22/2016 [facility] MCH 30.4 pg 27.0 - 31.0 08/22/2016 [facility] MCV 90.3 fL 80.0 - 98.0 08/22/2016 [facility] Eosinophils # 0.2 K/CMM 0.0 - 0.5 08/22/2016 [facility] Monocytes # 0.6 K/CMM 0.0 - 0.8 08/22/2016 [facility] Basophils # 0.1 K/CMM 0.0 - 0.2 08/22/2016 [facility] Basophils 1.3 % 0.0 - 1.0 08/22/2016 [facility] Eosinophils 1.7 % 0.0 - 4.0 08/22/2016 [facility] Segs-Bands # 5.4 K/CMM 1.5 - 8.1 08/22/2016 [facility] Lymphocytes # 3.2 K/CMM 1.0 - 5.5 08/22/2016 [facility] Segs 56.7 % 45.0 - 75.0 08/22/2016 [facility] Monocytes 6.6 % 2.0 - 12.0 08/22/2016 [facility] Lymphocytes 33.7 % 20.0 - 40.0 08/22/2016 [facility] PT 12.0 s 12.0 - 14.7 08/22/2016 [facility] PTT 28.0 s 22.9 - 35.8 08/22/2016 [facility] INR 0.87 0.85 - 1.17 08/22/2016 [facility] URINE CHEM U Preg Negative (08/22/16 4:14 PM) Negative 08/22/2016 [facility] URINE CHEM U Preg Negative (08/11/16 12:50 PM) Negative 08/11/2016 [facility] Chest/Abd/Pelvis w/wo IV contrast CT Chest/Abd/Pelvis w/wo IV contrast CT Chest/Abd/Pelvis w/wo IV contrast CT CLINICAL HX: Z85.3 Personal history of malignant neoplasm of breast; patient states she was just diagnosed with breast cancer and phys wants these images to make sure it has not spread to anywhere else. CT DLP - 2783 mGycm; 100 omni IV \\T\\ 25 omni oral COMPARISON: none TECHNIQUE: Contiguous transaxial images of the chest, abdomen and pelvis were performed with IV contrast. Reformats are available in sagittal and coronal projections. CT CHEST: Noncontrast images through the chest reveal a tiny granuloma in the right lung, lower lobe. SUPPORT DEVICES: none LOWER NECK: Symmetric appearance of thyroid gland without focal abnormality. LUNGS AND AIRWAYS: Tiny granuloma right lower lobe. The lungs and pleural spaces are clear. The trachea and the proximal bronchi are patent. CARDIOVASCULAR: The cardiac size is normal. The aorta demonstrates normal morphology. No evidence for dissection or aneurysm. LYMPH NODES: No significant mediastinal or hilar lymphadenopathy. BONE AND SOFT TISSUE: 10 mm nodule is noted in the medial aspect of left breast. Vague density possibly a surgical clip in the superior lateral aspect of left breast. No gross axillary lymphadenopathy. No significant bony abnormality is noted. ESOPHAGUS: The esophagus demonstrates normal morphology. CT ABDOMEN: No abnormal calcifications are visualized on the noncontrast CT of the abdomen and pelvis. ABDOMINAL VISCERA: 5 mm low-density lesion at the dome of the liver may represent a small cyst. This is too small to definitively classify. Mild fatty infiltration of liver. Spleen, pancreas and both adrenal glands are unremarkable in appearance. Gallbladder demonstrates normal morphology. GI TRACT: Bowel gas pattern is unremarkable. Appendix demonstrates normal morphology. There is no evidence for free fluid or free air in the abdomen. TRACT: The kidneys demonstrate normal morphology and symmetric excretion. LYMPH NODES: No significant retroperitoneal lymphadenopathy is noted. VASCULATURE: Aorta demonstrates normal morphology. BONE AND SOFT TISSUES: Tiny umbilical hernia containing mesenteric fat. No bowel herniation No significant bony abnormality is noted. CT PELVIS: Uterus demonstrates normal morphology. 2 cm cyst left ovary. No free fluid is present in the pelvis. IMPRESSION: 10 mm nodule is noted in the medial aspect of left breast. Vague density, possible surgical clips, superior lateral aspect of left breast. Tiny granuloma, right lung, lower lobe. Mild fatty infiltration of liver. Indeterminate 5 mm low-density lesion towards dome of liver. This likely represents a cyst. 2 cm cyst, left ovary. No other significant abnormality is noted on the pre and postcontrast CT of chest abdomen and pelvis. SL: [id number] 08/11/2016 - - Read by: García Kauffman MD Dictated Date/time: 08/11/16 16:40 Electronically Signed by: García Kauffman MD 08/11/16 16:57 FINAL REPORT [facility] Bone scan VA Bone scan VA WHOLE BODY BONE SCAN: HISTORY: Breast carcinoma. TECHNIQUE: 28.1 mCi of technetium 99m MDP were given intravenously followed by delayed whole-body images. AP spot images of the thorax, abdomen and pelvis, and lateral spot images of the head and neck were also done. FINDINGS: There is increased activity in the right knee consistent with degenerative changes. There is mildly increased activity at the anterior ends of multiple lower ribs bilaterally consistent with reactive changes or costochondritis. There is no other abnormal activity. CT of the chest, abdomen and pelvis on the same date shows no lytic or blastic osseous lesions. IMPRESSION: No bone scan evidence of osseous metastases. [id number] 08/11/2016 - - Read by: Hermann Duran MD Dictated Date/time: 08/11/16 15:50 Electronically Signed by: Hermann Duran MD 08/11/16 15:54 FINAL REPORT [facility] Breast BX Uni w Clip Primary Side US Breast BX Uni w Clip Primary Side US - BREAST BX UNI W CLIP PRIMARY SIDE US/L ULTRASOUND GUIDED BIOPSY LEFT BREAST WITH MARKING DEVICE INSERTED AND POST DIGITAL MAMMOGRAPHIC AND ULTRASOUND IMAGIN08/04/2016 CLINICAL: Abnomal Lymph Node. Previous FNA biopsy of left axillary lymph node reported rare malignant cells and additional specimen via core biopsy was requested. Correlation is made to exams dated: 07/17/2016 ultrasound biopsy, 07/17/2016 fine needle aspiration, 07/10/2016 breast MRI, 07/10/2016 ultrasound, 07/10/2016 mammogram - [facility] and 06/17/2016 mammogram - [facility]. An ultrasound guided biopsy using real-time ultrasound was performed for the lymph node located in the left axillary tail. This was described on the previous ultrasound and MRI reports. The skin was prepped in the usual manner. Local anesthetic was administered to the access site. A skin ralph was made in the breast. A 14 gauge biopsy needle was placed adjacent to the abnormality through an introducer device under ultrasound guidance. Once the needle was documented to be in the correct location, three specimens were obtained using an Achieve automated firing device. A WING clip was inserted into the biopsy cavity. Post procedure digital mammographic and ultrasound imaging demonstrates the clip at the targeted area. The specimens were sent to the laboratory for pathological analysis. IMPRESSION: ULTRASOUND GUIDED BIOPSY MALIGNANT Ultrasound guided biopsy of the lymph node in the left axillary tail was successful with no apparent post procedure complications. 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 "metastatic lobular carcinoma, consistent with breast primary, involving lymph node tisue." Pathology results are concordant with imaging findings. PLEASE REFER TO MRI BIOPSY REPORT OF THE SAME DAY REGARDING FOLLOW-UP RECOMMENDATIONS. The finding(s) and recommendation(s) were discussed with the patient under my direction by James Bruno LVN on 08.06.2016. Justice Gabriel M.D. mt/:08/06/2016 10:16:56 Reprographics Associate: Felisa Seay R.D.M.S, [facility] This exam was dictated and interpreted by [id number] for [facility]. 08/04/2016 - - Read by: Justice Gabriel MD Dictated Date/time: 08/06/16 10:16 Electronically Signed by: Justice Gabriel MD 08/06/16 10:16 FINAL REPORT [facility] Breast BX Perc Needle Core Uni MRI Breast BX Perc Needle Core Uni MRI - BREAST BX PERC NEEDLE CORE UNI MRI/L MRI BIOPSY LEFT BREAST USING VACUUM DEVICE WITH MARKING DEVICE INSERTED AND POST DIGITAL MAMMOGRAPHIC AND MRI IMAGIN08/04/2016 CLINICAL: Z17.0, R92.8. PATIENT CONSENT: The procedure and its risks, benefits, and alternatives were explained in detail to the patient, who agreed to proceed and signed an informed consent form. All questions were answered. Correlation is made to exams dated: 07/17/2016 ultrasound biopsy, 07/17/2016 fine needle aspiration, 07/10/2016 breast MRI, 07/10/2016 ultrasound, 07/10/2016 mammogram - [facility] and 06/23/2016 ultrasound biopsy - [facility]. An MRI biopsy was performed for the 0.4 cm circumscribed enhancing mass located in the left breast at 10 o'clock middle depth 8 cm from the nipple. This was described on the previous MRI report. The skin was prepped in the usual manner. Local anesthetic was administered to the access site. A small incision was made in the breast. The abnormality was approached from the lateral aspect. A 9 gauge biopsy needle was placed adjacent to the abnormality under MRI guidance. Additional MRI images were obtained to document needle placement. Once the needle was documented to be in the correct location, multiple specimens were obtained using the [email or web address] system. A WING-CLIP was inserted into the biopsy cavity. A skin closure strip and a sterile dressing were applied to the access site. Post procedure digital mammographic and MRI imaging demonstrates the clip 6 cm lateral from the geometric center of the targeted area. The specimens were sent to the laboratory for pathological analysis. IMPRESSION: MRI BIOPSY MALIGNANT 1. MRI biopsy of the 0.4 cm enhancing mass with washout in the LEFT breast at 10 o'clock middle depth 8 cm from the nipple with no apparent immediate post procedure complications. Pathology indicates malignant invasive lobular carcinoma, low nuclear grade. 2. Post biopsy LEFT mammogram shows the WING-CLIP MIGRATED approximately 6.0 cm from the actual biopsy site. RECOMMENDATION: 1. CONTINUED TREATMENT PLANNING PER DR. LARA. Chen Bruno LVN, telephonically discussed the findings and recommendations with the patient under my direction on 08/06/16. Elizabeth Paulino M.D. sg/:08/06/2016 10:47:28 Reprographics Associate: Tonja Marcus, [facility] This exam was dictated and interpreted by [id number] for [facility]. 08/04/2016 - - Read by: Elizabeth Paulino MD Dictated Date/time: 08/06/16 10:47 Electronically Signed by: Elizabeth Paulino MD 08/06/16 10:47 FINAL REPORT [facility] Breast BX Uni w Clip Primary Side US Breast BX Uni w Clip Primary Side US - BREAST BX UNI W CLIP PRIMARY SIDE US/L ULTRASOUND GUIDED BIOPSY LEFT BREAST: 07/17/2016 CLINICAL: C50.412 Malignant Neoplasm Of Upper-Outer Quadrant Of Left Female Breast. Correlation is made to exams dated: 07/17/2016 fine needle aspiration, 07/10/2016 breast MRI, 07/10/2016 ultrasound, 07/10/2016 mammogram - [facility], 06/23/2016 ultrasound biopsy and 06/17/2016 mammogram - [facility]. An ultrasound guided biopsy using real-time ultrasound was performed for the irregular shaped mass located in the left breast at 1 o'clock middle depth. The skin was prepped in the usual manner. Local anesthetic was administered to the access site. A small incision was made in the breast. The abnormality was approached from the lateral aspect. A 12 gauge biopsy needle was placed adjacent to the abnormality under ultrasound guidance. Once the needle was documented to be in the correct location, five specimens were obtained using a BARD biopsy device. A "R" clip was inserted into the biopsy cavity. A sterile dressing was applied to the access site. Post procedure imaging demonstrates the clip at the targeted area. The specimens were sent to the laboratory for pathological analysis. IMPRESSION: ULTRASOUND GUIDED BIOPSY MALIGNANT Ultrasound guided biopsy of the mass in the left breast at 1 o'clock middle depth was successful. Pathology indicates malignant invasive ductal carcinoma (ID), low nuclear grade. Pathology results are concordant with imaging findings. RECOMMENDATIONS: 1. Continued treatment planning per Dr. Lara. 2. MRI guided biopsy is recommended for a small enhancing nodule in the left breast which was not seen on ultrasound, if this will alter treatment plannning. (Please see corresponding MRI and US reports for details.) Chuck Curry M.D. bf/:07/24/2016 11:35:08 Reprographics Associate: Felisa Seay R.D.M.S, [facility] This exam was dictated and interpreted by [id number] for [facility]. 07/17/2016 - - Read by: Chuck Curyr MD Dictated Date/time: 07/24/16 11:35 Electronically Signed by: Chuck Curry MD 07/24/16 11:35 FINAL REPORT [facility] Fine Needle Asp Uni US Fine Needle Asp Uni US - FINE NEEDLE ASP UNI US/L ULTRASOUND GUIDED FINE NEEDLE ASPIRATION LEFT BREAST: 07/17/2016 CLINICAL: C50.412 Malignant Neoplasm Of Upper-Outer Quadrant Of Left Female Breast. Correlation is made to exams dated: 07/10/2016 breast MRI, 07/10/2016 ultrasound, 07/10/2016 mammogram - [facility], 06/23/2016 ultrasound biopsy, 06/17/2016 mammogram and 06/17/2016 ultrasound - [facility]. A fine needle aspiration was performed for the lymph node located in the left axilla. The skin was prepped in the usual manner. Local anesthetic was administered to the access site. The abnormality was approached from the lateral aspect. A 18 gauge needle was percutaneously placed into the abnormality under ultrasound guidance. Once the needle was documented to be in the correct location, three specimens were obtained. A "COIL" clip was inserted into the biopsy cavity. A sterile dressing was applied to the access site. Post procedure imaging demonstrates the clip at the targeted area. The specimens were sent to the laboratory for cytological analysis. IMPRESSION: FINE NEEDLE ASPIRATION MALIGNANT Fine needle aspiration of the lymph node in the left axilla was successful. Cytology results are MALIGNANT. There are rare malignant cells consisent with metastatic carcinoma from the patient's known breast primary malignancy. Please see the left breast ultrasound guided core biopsy report from the same date for recommendations. Chuck Curry M.D. bf/:07/24/2016 11:40:45 Reprographics Associate: Felisa Seay R.D.M.S, [facility] This exam was dictated and interpreted by [id number] for [facility]. 07/17/2016 - - Read by: Chuck Curry MD Dictated Date/time: 07/24/16 11:40 Electronically Signed by: Chuck Curry MD 07/24/16 11:40 FINAL REPORT [facility] Breast Complete Mitesh US Breast Complete Mitesh US - BREAST COMPLETE MITESH US ULTRASOUND OF BOTH BREASTS: 07/10/2016 CLINICAL: HISTORY: 45 yo female newly diagnosed with multifocal LEFT breast invasive lobular carcinoma. She underwent sono-guided core biopsies of two adjacent 7 mm and 6 mm masses at 12-1:00, LEFT breast, anterior depth at [facility] in [place] on 06/23/16. Both sites revealed intermediate grade ILC. She also has a history of undergoing a stereotactic-guided biopsy of calcifications in the posterior upper outer quadrant of the LEFT breast in 05/2014 at the same facility. Family history of breast cancer includes: Maternal great aunt at age 60's, Maternal aunt at age 53, 2 second Cousins at ages 40's. No prior breast surgeries. Same day MRI showed a dominant 1.1 cm enhancing mass in the posterior upper outer LEFT breast and a 0.4 cm enhancing nodule at 10:00, middle depth in the LEFT breast. PLEASE SEE SAME DAY MRI REPORT. Comparison is made to exams dated: 06/17/2016 mammogram, 05/30/2016 mammogram, 05/29/2015 mammogram, 05/05/2014 mammogram, 04/20/2014 mammogram and 01/21/2013 mammogram - [facility]. Real-time ultrasound of both breasts was performed. RIGHT BREAST FINDINGS: The entire right breast was evaluated including all four quadrants, axillary tail, subareolar region and axilla. No abnormalities that would be suspicious for malignancy were identified. Scattered subcentimeter cysts were identified. No axillary adenopathy. LEFT BREAST AND AXILLA FINDINGS: The entire left breast was evaluated including all four quadrants, axillary tail, subareolar region and axilla. The biopsy proven malignant irregular mass with RIBBON-CLIP at 12:00, 3 cm FN measures 0.7 cm and the biopsy proven malignant superficial irregular mass with BARBELL-CLIP also measures 0.7 cm. At the posterior 1:00 position, a spiculated hypoechoic mass measuring 1.0 cm was identified and believed to correspond to the dominant MRI enhancing mass. An adjacent 0.8 cm irregular hypoechoic lesion with poorly defined margins was also identified. The combined findings span approximately 2.4 cm in greatest transverse dimension. No ultrasound correlate for the 0.4 cm enhancing nodule near the 10:00 position, 8 cm FN (image #52) was identified. Scattered subcentimeter cysts were seen. LEFT POOJA BASINS: A 1.0 cm hypoechoic lymph node without a visible fatty hilum was identified in the lower axilla. The remaining visualized nodes appeared to be architecturally preserved. No infraclavicular, supraclaviclar or internal mammary adenopathy identified. IMPRESSION: KNOWN BIOPSY PROVEN MALIGNANCY - FOLLOW-UP RECOMMENDED 1. THE TWO ADJACENT KNOWN BIOPSY PROVEN MALIGNANCIES (ILC) WITH CLIPS AT 12:00-1:00, LEFT BREAST, ANTERIOR DEPTH, EACH MEASURE APPROXIMATELY 0.7 CM DESCRIBED ABOVE. 2. A CORRESPONDING SPICULATED MASS WAS IDENTIFIED AT 1:00, LEFT BREAST, POSTERIOR DEPTH, 8-11 CM FN DESCRIBED ABOVE. ULTRASOUND-GUIDED BIOPSY IS RECOMMENDED. A CORRELATE FOR THE 0.4 CM ENHANCING NODULE, LEFT BREAST, 10:00, 8 CM FN WAS NOT IDENTIFIED. IF CLINICALLY INDICATED, AN MRI BIOPSY CAN BE PERFORMED. 3. 1.0 CM SUSPICIOUS LEFT AXILLARY LYMPH NODE. RECOMMEND FNA BIOPSY. 4. MILD BILATERAL FIBROCYSTIC CHANGES. 5. THERE IS NO DEFINITE RADIOGRAPHIC OR SONOGRAPHIC EVIDENCE TO SUGGEST MALIGNANCY IN THE RIGHT BREAST. RECOMMENDATION: PATIENT HAS BEEN TENTATIVELY SCHEDULED TO RETURN FOR A LEFT BREAST SONO-GUIDED CORE BIOPSY AND LEFT AXILLARY LYMPH NODE FNA ON 07/17/16 PENDING PHYSICIAN ORDERS AND INSURANCE AUTHORIZATION. I personally reviewed the imaging findings and recommendations with the patient and her . Elizabeth Paulino M.D. sg/:07/15/2016 11:29:07 Reprographics Associate: Ale YARBROUGH)(Rishabh), [facility] This exam was dictated and interpreted by [id number] for [facility]. letter sent: Birad 6 Ultrasound BI-RADS: 6 Known biopsy proven malignancy 07/10/2016 - - Read by: Elizabeth Paulino MD Dictated Date/time: 07/15/16 11:29 Electronically Signed by: Elizabeth Paulino MD 07/15/16 11:29 FINAL REPORT [facility] Breast Mammo Diag MITESH incl CAD MA Breast Mammo Diag MITESH incl CAD MA - BREAST MAMMO DIAG MITESH INCL CAD MA BILATERAL DIGITAL DIAGNOSTIC MAMMOGRAM WITH CAD: 07/10/2016 CLINICAL: HISTORY: 45 yo female newly diagnosed with multifocal LEFT breast invasive lobular carcinoma. She underwent sono-guided core biopsies of two adjacent 7 mm and 6 mm masses at 12-1:00, LEFT breast, anterior depth at [facility] in [place] on 06/23/16. Both sites revealed intermediate grade ILC. She also has a history of undergoing a stereotactic-guided biopsy of calcifications in the posterior upper outer quadrant of the LEFT breast in 05/2014 at the same facility. Family history of breast cancer includes: Maternal great aunt at age 60's, Maternal aunt at age 53, 2 second Cousins at ages 40's. No prior breast surgeries. Same day MRI showed a dominant 1.1 cm enhancing mass in the posterior upper outer LEFT breast and a 0.4 cm enhancing nodule at 10:00, middle depth in the LEFT breast. PLEASE SEE SAME DAY MRI REPORT. Current study was evaluated with a Computer Aided Detection (CAD) system. Comparison is made to exams dated: 06/17/2016 mammogram, 05/30/2016 mammogram, 05/29/2015 mammogram, 05/05/2014 mammogram, 04/20/2014 mammogram and 01/21/2013 mammogram - [facility]. The tissue of both breasts is heterogeneously dense, which could obscure detection of small masses. The two adjacent sites of known biospy proven ILC are located at 12-1:00, LEFT breast, anterior depth. The RIBBON-CLIP is slightly more superior than the BARBELL-CLIP. The RIBBON-CLIP is located 6 cm FN and the BARBELL-CLIP is located 5 cm FN on the true lateral view. The clips are 2.0 cm apart on the ML view and 1.3 cm apart on the CC view. The BARREL-CLIP marking the site of the remote benign biopsy of calcifications (05/2014) is located near the 1:00 position in the LEFT breast, posterior depth, 11 cm FN. Asymmetry is associated with this biopsy site but no discrete mass is seen on the routine images. Magnification views over the area and maurisio images through the area show a spiculated lesion and fairly homogeneous calcifications associated with the asymmetry. Similar-appearing but less numerous calcifications are demonstrated at the anterior malignant biopsy sites. No suspicious abnormalities are identified on the RIGHT. IMPRESSION: KNOWN BIOPSY PROVEN MALIGNANCY PLEASE SEE SAME DAY ULTRASOUND AND MRI REPORT. Elizabeth Paulino M.D. sg/:07/15/2016 11:29:07 Reprographics Associate: Ale CLARK(R)(M), [facility] This exam was dictated and interpreted by [id number] for [facility]. letter sent: Biralfa 6 Mammogram BI-RADS: 6 Known biopsy proven malignancy 07/10/2016 - - Read by: Elizabeth Paulino MD Dictated Date/time: 07/15/16 11:29 Electronically Signed by: Elizabeth Paulino MD 07/15/16 11:29 FINAL REPORT [facility] Breast w/wo contrast bilat MRI Breast w/wo contrast bilat MRI AMENDMENT: 08/01/2016 Elizabeth Paulino M.D. The purpose of this addendum is to document the MRI was reviewed after biopsy of the posterior spiculated mass at 1:00, LEFT breast, 10 cm FN revealed low grade IDC and FNA of LEFT axillary node showed rare malignant cells. It should be emphasized that the MRI was performed on day #18 of her cycle and there is a background of enhancement believed to be hormonal in nature. However, a larger area of disease in the upper outer LEFT breast is now questioned. When the posterior known malignant biopsy site (IDC) is combined with the two adjacent anterior known malignant biopsy sites (ILC x 2) and the delayed low-signal linear nonmass enhancement between the two sites, the total area measures approximately 7.0 cm in greatest AP dimension. If could alter treatment planning, recommend MRI guided biopsy in a central location between the two known biopsy proven anterior and posterior malignant sites. Amended BI-RADS: 6 Known biopsy proven malignancy - BREAST W/WO CONTRAST BILAT MRI BREAST MRI OF BOTH BREASTS : 07/10/2016 CLINICAL: HISTORY: 45 yo female newly diagnosed with multifocal LEFT breast invasive lobular carcinoma presents for MRI to assess extent of disease. She underwent sono-guided core biopsies of two adjacent 7 mm and 6 mm masses at 12- 1:00, LEFT breast, anterior depth at [facility] in [place] on 06/23/16. Both sites revealed intermediate grade ILC. She also has a history of undergoing a stereotactic-guided biopsy of calcifications in the posterior upper outer quadrant of the LEFT breast in 05/2014 at the same facility. Family history of breast cancer includes: Maternal great aunt at age 60's, Maternal aunt at age 53, 2 second Cousins at ages 40's. No prior breast surgeries. LMP: 06/23/16 (DAY# 18). Comparison is made to exams dated: 07/10/2016 ultrasound, 07/10/2016 mammogram - [facility], 06/23/2016 ultrasound biopsy, 06/17/2016 mammogram, 06/17/2016 ultrasound and 05/30/2016 mammogram - [facility]. INFORMED CONSENT: The procedure was explained to the patient including possible risks, benefits, complications and alternatives. The patient understood and desired to proceed. PRE GADOLINIUM CONTRAST INJECTION LABORATORY TESTING: The patient's creatinine and GFR were assessed with the I-STAT DEVICE. Creatinine measured 0.9 mg/dL and GFR 77. The patient's values fall within normal limits for age and weight. These values are considered within tolerance and safe for injection. TECHNIQUE: High resolution 1.4 mm RODEO plus, axial acquisitions were obtained of both breasts using an [employer] 1.5 Kaylan dedicated breast MRI preceding and following the administration of 20 cc's of Omniscan, subtraction, 2D and 3D maximum intensity projections (MIP), multiplanar reconstructions (MPR) and STEVIE Time Activity curves were performed on the Physician's Review Station with [email or web address]. MRI FINDINGS: RIGHT BREAST FINDINGS: There is mild background parenchymal enhancement. I do not identify any definite evidence of spiculated or linear beaded enhancement to suggest malignancy. The nipple-areolar complex appears to be unremarkable. The visualized lymph nodes appear architecturally preserved. The chest wall structures appear normal. No internal mammary adenopathy. LEFT BREAST FINDINGS: There is mild background parenchymal enhancement. Image #51 demonstrates an enhancing 1.1 cm spiculated mass with washout at 1:00, 10 cm fn. The inferior margin of the mass abuts the marking clip with artifact from the prior benign stereotactic biopsy. Recommend second-look ultrasound. Image #45 demonstrates the known biopsy proven malignancy with clip and artifact. The residual enhancing mass measures 0.9 cm and is thought to correspond with the RIBBON-CLIP. Image # 55 demonstrates the adjacent known biopsy proven malignancy with clip and artifact. The residual enhancement measures approximately 0.7 cm and is thought to correspond with the BARBELL-CLIP. Image# 52 demonstrates a 0.4 cm enhancing nodule with wash-out at 10:00, 8 cm fn. Recommend second-riana ultrasound. The nipple-areolar complex appears to be unremarkable. Image #13 and 23 show prominent 1.0 cm axillary lymph nodes with cortical thickening. The remaining visualized lymph nodes appear architecturally preserved. The chest wall structures appear normal. No internal mammary adenopathy. IMPRESSION: KNOWN BIOPSY PROVEN MALIGNANCY 1. TWO ADJACENT SITES OF BIOPSY PROVEN INVASIVE LOBULAR CARCINOMA, LEFT BREAST, 12-1:00, ANTERIOR DEPTH WITH CLIPS AND ARIFACT DESCRIBED ABOVE. 2. 1.1 CM ENHANCING SPICULATED MASS, 1:00, LEFT BREAST, POSTERIOR DEPTH, 10 CM FN. RECOMMEND FURTHER IMAGING. 3. 0.4 CM ENHANCING NODULE, 10:00, LEFT BREAST, 8 CM FN. RECOMMEND SECOND-LOOK ULTRASOUND. 4. THERE IS NO DEFINITE MRI EVIDENCE OF MALIGNANCY INVOLVING THE RIGHT BREAST. 5. TWO SUSPICIOUS-APPEARING LEFT AXILLARY LYMPH NODES. RECOMMEND SECOND-LOOK ULTRASOUND. RECOMMENDATION: 1. SEE SAME DAY BILATERAL MAMMOGRAM AND BILATERAL BREAST AND POOJA BASIN ULTRASOUND REPORTS. I personally reviewed the imaging findings and recommendations with the patient. Elizabeth Paulino M.D. sg/:07/14/2016 18:09:08 Reprographics Associate: Tonja Marcus [facility] This exam was dictated and interpreted by [id number] for [facility]. letter sent: Birad 6 MRI BI-RADS: 6 Known biopsy proven malignancy 07/10/2016 - - Read by: Elizabeth Paulino MD Dictated Date/time: 08/01/16 11:40 Electronically Signed by: Elizabeth Paulino MD 08/01/16 11:40 FINAL REPORT - - Read by: Elizabeth Paulino MD Dictated Date/time: 07/14/16 18:09 Electronically Signed by: Elizabeth Paulino MD 07/14/16 18:09 FINAL REPORT [facility] Vital Signs Vital Sign Value Date Comments Source Respitory Rate 16 08/29/2016 [facility] Systolic (mm Hg) 146 08/29/2016 [facility] Diastolic (mm Hg) 84 08/29/2016 [facility] Temperature Oral (F) 98.1 F 08/29/2016 [facility] Heart Rate 83 08/29/2016 [facility] Systolic (mm Hg) 129 08/29/2016 [facility] Diastolic (mm Hg) 83 08/29/2016 [facility] Temperature Oral (F) 97.9 F 08/29/2016 [facility] Heart Rate 76 08/29/2016 [facility] Respitory Rate 16 08/29/2016 [facility] Systolic (mm Hg) 112 08/29/2016 [facility] Diastolic (mm Hg) 74 08/29/2016 [facility] Respitory Rate 16 08/29/2016 [facility] Temperature Oral (F) 98.4 F 08/29/2016 [facility] Heart Rate 80 08/29/2016 [facility] Height 165.1 cm 08/22/2016 [facility] BMI Calculated 35.41 08/22/2016 [facility] Weight 96.534 08/22/2016 [facility] Encounters Location Location Details Encounter Type Encounter Number Reason For Visit Attending Provider ADM Date DC Date Status Source [facility] Outpatient Imaging - [facility] [id number] Maritza Checka 07/10/2016 07/11/2016 [facility] Outpatient [facility] - [facility] [id number] Maritza Checka 07/17/2016 07/18/2016 [facility] Outpatient Imaging - [facility] [id number] Maritza Checka 08/04/2016 08/05/2016 [facility] Outpatient [id number] Non Physician 08/11/2016 08/12/2016 [facility] Observation [id number] Maritza Lara 08/28/2016 08/29/2016 [facility] Outpatient Imaging - [facility] Out[facility] Di[facility] [id number] Maritza Lara 07/07/2017 07/08/2017 [facility] Procedures Procedure Code Date Perfomer Comments Source Biopsy of breast [id number] [facility] Biopsy of breast [id number] [facility]
--- OUTSIDE RECORDS SUMMARY | 2018-03-16 07:35 | XMS REPORT | Summary of Care ---
Author Author [facility] Outpatient Imaging - [facility] Outpatient Imaging - [facility] Address Unknown Phone Unavailable Encounter HQ Encntr_alimaine(FIN) [id number] Date(s): 07/10/16 - 07/10/16 [facility] [address] [place] [address] [phone] Discharge Disposition: Home or Self Care Attending [...]
--- OUTSIDE RECORDS SUMMARY | 2018-03-16 07:35 | XMS REPORT | Summary of Care ---
Author Author [facility] Organization [facility] Address Unknown Phone Unavailable Encounter LALO Aguilar(TONY) [id number] Date(s): 08/28/16 - 08/29/16 [facility] [address] [place] [address]- Discharge Disposition: Home or Self Care Attending Physician: Maritza Lara MD Referring Physician: Maritza Lara MD Vital Signs 1 2 3 Most recent to oldest [Reference Range]: 165.1 cm (08/22/16 4:07 PM) Height 98.1 DegF (08/29/16 10:00 AM) 97.9 DegF (08/29/16 7:27 AM) 98.4 DegF (08/29/16 4:28 AM) Temperature Oral [96.4-99.1 DegF] 146/84 mmHg *HI* (08/29/16 10:00 AM) 129/83 mmHg (08/29/16 7:27 AM) 112/74 mmHg (08/29/16 4:28 AM) Blood Pressure [90-140/60-90 mmHg] 16 BRMIN (08/29/16 10:00 AM) 16 BRMIN (08/29/16 7:27 AM) 16 BRMIN (08/29/16 4:28 AM) Respiratory Rate [14-20 BRMIN] 83 bpm (08/29/16 10:00 AM) 76 bpm (08/29/16 7:27 AM) 80 bpm (08/29/16 4:28 AM) Peripheral Pulse Rate [60-100 bpm] 96.534 kg (08/22/16 4:07 PM) Weight 35.41 m2 (08/22/16 4:07 PM) Body Mass Index Problem List Condition Effective Dates Status Health Status Informant Surgery Active follow-up(Confirmed) Allergies, Adverse Reactions, Alerts Substance Reaction Severity Status NKDA Active Medications acetaminophen (ANES) Route: IV, Drug form: INJ, ONCE, Stop date: 08/28/16 11:38:00 CDT Start Date: 08/28/16 Stop Date: 08/28/16 Status: Completed acetaminophen-codeine 300 mg-30 mg oral tablet 1 tab, PO, Q4H, PRN Pain, X 7 day, # 42 tab, 0 Refill(s) Start Date: 08/29/16 Stop Date: 09/05/16 Status: Ordered acetaminophen-tramadol 325 mg-37.5 mg oral tablet 1 tab, PO, Q4H, 0 Refill(s) Start Date: 08/22/16 Stop Date: 08/29/16 Status: Discontinued albuterol-ipratropium 2.5-0.5 mg inhalation solution 3 mL, Route: NEB, Dosing Weight 96.534, kg, ONCE, STAT, Start date: 08/28/16 7:5 6:00 CDT, Stop date: 08/28/16 7:56:00 CDT Start Date: 08/28/16 Stop Date: 08/28/16 Status: Discontinued Ancef + sodium chloride 0.9% INJ 100 mL 1 gm, Route: IVPB, ABXQ8H, Dosing Weight 96.534, kg, Start date: 08/28/16 21:00: 00 CDT, Duration: 2 doses or times, Stop date: 08/29/16 5:00:00 CDT Notes: (Same As: Ancef, Kefzol) MEDICATION WASTE Product Size: 1000 mgP roduct Wasted: ___ mg Start Date: 08/28/16 Stop Date: 08/29/16 Status: Completed ANES acetaminophen 1,000 mg, Route: PO, Drug form: TAB, ONCE, Dosing Weight 96.534, kg, PRN Pain Sc ore 1-3, Start date: 08/28/16 13:17:00 CDT, Duration: 1 doses or times, Stop adrián e: Limited # of times Start Date: 08/28/16 Stop Date: 08/28/16 Status: Discontinued ANES albuterol 0.083% inhalation solution 2.49 mg, Route: NEB, Q20Min, Dosing Weight 96.534, kg, PRN Wheezing, Priority: S TAT, Start date: 08/28/16 13:17:00 CDT, Duration: 30 day, Stop date: 09/27/16 13 :16:00 CDT Start Date: 08/28/16 Stop Date: 08/28/16 Status: Discontinued ANES diphenhydrAMINE 12.5 mg, Route: IVP, Drug form: INJ, Q6H, Dosing Weight 96.534, kg, PRN Itching, Start date: 08/28/16 13:17:00 CDT, Duration: 30 day, Stop date: 09/27/16 13:16: 00 CDT Start Date: 08/28/16 Stop Date: 08/28/16 Status: Discontinued ANES esmolol 10 mg, Route: IVP, Q5Min, Dosing Weight 96.534, kg, PRN Other -See Comment, Star t date: 08/28/16 13:17:00 CDT, Duration: 5 doses or times, Stop date: Limited # of times Start Date: 08/28/16 Stop Date: 08/28/16 Status: Discontinued ANES flumazenil 0.2 mg, Route: IVP, PRN, Dosing Weight 96.534, kg, PRN Benzodiazepine Reversal, Initial dose, Start date: 08/28/16 13:17:00 CDT, Duration: 30 day, Stop date: 13:16:00 CDT Start Date: 08/28/16 Stop Date: 08/28/16 Status: Discontinued ANES hydrALAZINE 10 mg, Route: IVP, Q20Min, Dosing Weight 96.534, kg, PRN Elevated BP, Start date : 08/28/16 13:17:00 CDT, Duration: 2 doses or times, Stop date: Limited # of isamar es Start Date: 08/28/16 Stop Date: 08/28/16 Status: Discontinued ANES HYDROmorphone 0.5 mg, Route: IVP, Q5Min, Dosing Weight 96.534, kg, PRN Pain Score 7-10, Start date: 08/28/16 13:17:00 CDT, Duration: 4 doses or times, Stop date: Limited # of times Start Date: 08/28/16 Stop Date: 08/28/16 Status: Discontinued ANES labetalol 10 mg, Route: IVP, Q5Min, Dosing Weight 96.534, kg, PRN Elevated BP, Start date: 08/28/16 13:17:00 CDT, Duration: 5 doses or times, Stop date: Limited # of times Start Date: 08/28/16 Stop Date: 08/28/16 Status: Discontinued ANES naloxone 0.4 mg, Route: IVP, Q2MIN, Dosing Weight 96.534, kg, PRN Narcotic Reversal, Star t date: 08/28/16 13:17:00 CDT, Duration: 8 doses or times, Stop date: Limited # of times Start Date: 08/28/16 Stop Date: 08/28/16 Status: Discontinued ANES ondansetron 4 mg, Route: IVP, ONCE, Dosing Weight 96.534, kg, PRN Nausea & Vomiting, Start date: 08/28/16 13:17:00 CDT Start Date: 08/28/16 Stop Date: 08/28/16 Status: Discontinued ANES oxyCODONE 5 mg, Route: PO, Drug form: TAB, Q4H, Dosing Weight 96.534, kg, PRN Pain Score 4 -6, Start date: 08/28/16 13:17:00 CDT, Duration: 30 day, Stop date: 09/27/16 13: 16:00 CDT Start Date: 08/28/16 Stop Date: 08/28/16 Status: Discontinued ANES promethazine 6.25 mg, Route: IVPB, ONCE, Dosing Weight 96.534, kg, PRN Nausea & Vomiting, Start date: 08/28/16 13:17:00 CDT Start Date: 08/28/16 Stop Date: 08/28/16 Status: Discontinued atenolol 50 mg oral tablet 50 mg=1 tab, PO, Daily, 0 Refill(s) Start Date: 08/22/16 Status: Ordered Augmentin 875 mg oral tablet 875 mg=1 tab, PO, Q24H, X 10 day, # 10 tab, 0 Refill(s), given to patient Start Date: 08/29/16 Stop Date: 09/08/16 Status: Ordered ceFAZolin (ANES) Route: IV, Drug form: INJ, ONCE, Stop date: 08/28/16 10:18:00 CDT Start Date: 08/28/16 Stop Date: 08/28/16 Status: Completed cetirizine 10 mg oral tablet 10 mg=1 tab, PO, Daily, 0 Refill(s) Start Date: 08/22/16 Status: Ordered dexamethasone (ANES) Route: IV, Drug form: INJ, ONCE, Stop date: 08/28/16 10:28:00 CDT Start Date: 08/28/16 Stop Date: 08/28/16 Status: Completed ePHEDrine (ANES) Route: IV, Drug form: INJ, ONCE, Stop date: 08/28/16 12:03:00 CDT Start Date: 08/28/16 Stop Date: 08/28/16 Status: Completed fentaNYL 50 microgram, 1 mL, Route: IVP, Drug form: INJ, Q5Min, Dosing Weight 96.534, kg, PRN Pain Score 4-6, Start date: 08/28/16 13:18:00 CDT, Duration: 4 doses or isamar es, Stop date: 08/29/16 0:00:00 CDT, Pediatric Dosing Notes: (Same as: Sublimaze) Preservative free. Start Date: 08/28/16 Stop Date: 08/29/16 Status: Completed fentaNYL (ANES) Route: IV, Drug form: INJ, ONCE, Stop date: 08/28/16 10:18:00 CDT Start Date: 08/28/16 Stop Date: 08/28/16 Status: Completed Flexeril 10 mg oral tablet 10 mg=1 tab, PO, TID, PRN for spasm, # 30 tab, 0 Refill(s), given to patient Start Date: 08/29/16 Stop Date: 08/29/17 Status: Ordered isosulfan blue 5 mg, 0.5 mL, Route: SUB-Q, Drug form: INJ, PRN, Dosing Weight 96.534, kg, PRN O ther -See Comment, Start date: 08/27/16 15:43:00 CDT, Duration: 1 doses or times , Stop date: Limited # of times Notes: (Same as:Lymphazurin) MEDICATION WASTE Product Size: 50 mgProduc t Wasted: _45__ mg Start Date: 08/27/16 Stop Date: 08/29/16 Status: Discontinued Lactated Ringers Injection IV 1000 mL 1,000 mL, Rate: 125 ml/hr, Infuse over: 8 hr, Route: IV, Dosing Weight 96.534 kg , Total Volume: 1,000, Start date: 08/28/16 13:17:00 CDT, Duration: 30 day, Stop date: 09/27/16 13:16:00 CDT Start Date: 08/28/16 Stop Date: 08/28/16 Status: Discontinued Lactated Ringers Injection IV 1000 mL 1,000 mL, Rate: 25 ml/hr, Infuse over: 40 hr, Route: IV, Dosing Weight 96.534 kg , Total Volume: 1,000, Start date: 08/28/16 7:56:00 CDT, Duration: 30 day, Stop date: 09/27/16 7:55:00 CDT Start Date: 08/28/16 Stop Date: 08/28/16 Status: Discontinued Lipitor 40 mg oral tablet 40 mg=1 tab, PO, Daily, 0 Refill(s) Start Date: 08/22/16 Status: Ordered LR 1000 mL INJ (ANES) Route: IV, Total Volume: 1,000, Start date: 08/28/16 9:27:00 CDT, Stop date: 10:27:00 CDT Start Date: 08/28/16 Stop Date: 08/28/16 Status: Completed meloxicam 7.5 mg oral tablet 7.5 mg=1 tab, PO, Daily Start Date: 08/22/16 Status: Ordered methylene blue 10 mg/mL injectable solution 100 mg, 20 mL, Route: InFILtration(local), Drug form: SOLN, ONCE, Dosing Weight 96.534, kg, Start date: 08/28/16 7:06:00 CDT, Stop date: 08/28/16 7:06:00 CDT Notes: (Same as :Mehrdad) MEDICATION WASTE Product Size: 50 mgProduc t Wasted: ___ mg Start Date: 08/28/16 Stop Date: 08/28/16 Status: Completed metoclopramide (ANES) Route: IV, Drug form: INJ, ONCE, Stop date: 08/28/16 10:28:00 CDT Start Date: 08/28/16 Stop Date: 08/28/16 Status: Completed midazolam (ANES) Route: IV, Drug form: SOLN, ONCE, Stop date: 08/28/16 9:58:00 CDT Start Date: 08/28/16 Stop Date: 08/28/16 Status: Completed morphine Sulfate 2 mg, 1 mL, Route: IVP, Drug form: INJ, Q2H, Dosing Weight 96.534, kg, PRN Pain Score 4-6, Start date: 08/28/16 13:26:00 CDT, Duration: 30 day, Stop date: 09/27 13:25:00 CDT Notes: (Same as:MORPhine Sulfate) Start Date: 08/28/16 Stop Date: 08/29/16 Status: Discontinued morphine Sulfate 4 mg, 1 mL, Route: IVP, Drug form: SOLN, Q2H, Dosing Weight 96.534, kg, PRN Pain Score 7-10, Start date: 08/28/16 13:26:00 CDT, Duration: 30 day, Stop date: 13:25:00 CDT Notes: (Same as:MORPhine Sulfate) Start Date: 08/28/16 Stop Date: 08/29/16 Status: Discontinued Rock 10/325 oral tablet 1 tab, PO, Q4H, PRN for pain, X 4 day, # 24 tab, 0 Refill(s), given to patient Start Date: 08/29/16 Stop Date: 09/02/16 Status: Ordered Rock 5/325 oral tablet 2 tab, Route: PO, Drug Form: TAB, Dosing Weight 96.534, kg, Q4H, PRN Pain Score 4-6, Start date: 08/28/16 13:27:00 CDT, Duration: 30 day, Stop date: 09/27/16 13 :26:00 CDT Notes: (Same as: Rock 325/5) Do not exceed 4gm/day of acetaminophen. Start Date: 08/28/16 Stop Date: 08/29/16 Status: Discontinued Rock 5/325 oral tablet 1 tab, Route: PO, Drug Form: TAB, Dosing Weight 96.534, kg, Q4H, PRN Pain Score 1-3, Start date: 08/28/16 13:27:00 CDT, Duration: 30 day, Stop date: 09/27/16 13 :26:00 CDT Notes: (Same as: Rock 325/5) Do not exceed 4gm/day of acetaminophen. Start Date: 08/28/16 Stop Date: 08/29/16 Status: Discontinued omeprazole 40 mg, PO, Daily, 0 Refill(s) Start Date: 08/22/16 Status: Ordered ondansetron (ANES) Route: IV, Drug form: INJ, ONCE, Stop date: 08/28/16 10:28:00 CDT Start Date: 08/28/16 Stop Date: 08/28/16 Status: Completed propofol (ANES) Route: IV, Drug form: INJ, ONCE, Stop date: 08/28/16 10:18:00 CDT Start Date: 08/28/16 Stop Date: 08/28/16 Status: Completed rocuronium (ANES) Route: IV, Drug form: INJ, ONCE, Stop date: 08/28/16 10:18:00 CDT Start Date: 08/28/16 Stop Date: 08/28/16 Status: Completed scopolamine (ANES) Route: RIGHT EAR, Drug form: ERFILM, ONCE, Stop date: 08/28/16 10:28:00 CDT Start Date: 08/28/16 Stop Date: 08/28/16 Status: Completed Singulair 10 mg oral tablet 10 mg=1 tab, PO, Daily, 0 Refill(s) Start Date: 08/22/16 Status: Ordered sodium chloride 0.9% 1000 ml INJ 1,000 mL 1,000 mL, Rate: 100 ml/hr, Infuse over: 10 hr, Route: IV, Dosing Weight 96.534 k g, Total Volume: 1,000, Start date: 08/28/16 13:24:00 CDT, Duration: 30 day, Sto p date: 09/27/16 13:23:00 CDT Start Date: 08/28/16 Stop Date: 08/29/16 Status: Discontinued succinylcholine (ANES) Route: IV, Drug form: INJ, ONCE, Stop date: 08/28/16 10:18:00 CDT Start Date: 08/28/16 Stop Date: 08/28/16 Status: Completed Valium 5 mg, 1 tab, Route: PO, Drug form: TAB, Q8H, Dosing Weight 96.534, kg, PRN Anxie ty, Start date: 08/28/16 13:28:00 CDT, Duration: 30 day, Stop date: 09/27/16 13: 27:00 CDT Notes: (Same as: Valium) Start Date: 08/28/16 Stop Date: 08/29/16 Status: Discontinued Wellbutrin XL 150 mg/24 hours oral tablet, extended release 150 mg=1 tab, PO, Q24H, 0 Refill(s) Start Date: 08/22/16 Status: Ordered Xanax 0.5 mg oral tablet 0.5 mg=1 tab, PO, TID, 0 Refill(s) Start Date: 08/22/16 Status: Ordered Zofran 4 mg, 2 mL, Route: IVP, Drug form: INJ, Q6H, Dosing Weight 96.534, kg, PRN Nause a, Start date: 08/28/16 13:29:00 CDT, Duration: 30 day, Stop date: 09/27/16 13:2 8:00 CDT Notes: (Same as: Zofran) MEDICATION WASTE Product Size: 4 mgProduct Was reji: ___ mg Start Date: 08/28/16 Stop Date: 08/29/16 Status: Discontinued Results ELECTROLYTES Most recent to 1 2 oldest [Reference Range]: Sodium Lvl [135-145 138 mEq/L mEq/L] (08/22/16 4:14 PM) Potassium Lvl 4.3 mEq/L [3.5-5.1 mEq/L] (08/22/16 4:14 PM) Chloride Lvl [95-109 105 mEq/L mEq/L] (08/22/16 4:14 PM) CO2 [24-32 mEq/L] 24 mEq/L (08/22/16 4:14 PM) AGAP [10.0-20.0 13.3 mEq/L mEq/L] (08/22/16 4:14 PM) CHEM PANEL Most recent to 1 2 oldest [Reference Range]: Creatinine Lvl 0.82 mg/dL [0.50-1.40 mg/dL] (08/22/16 4:14 PM) eGFR 87 mL/min/1.73m2 1 *NA* (08/22/16 4:14 PM) BUN [7-22 mg/dL] 11 mg/dL (08/22/16 4:14 PM) B/C Ratio [6-25] 13 (08/22/16 4:14 PM) Glucose Lvl [70-99 97 mg/dL mg/dL] (08/22/16 4:14 PM) Total Protein 7.4 g/dL [6.4-8.4 g/dL] (08/22/16 4:14 PM) Albumin Lvl [3.5-5.0 3.5 g/dL g/dL] (08/22/16 4:14 PM) Globulin [2.7-4.2 3.9 g/dL g/dL] (08/22/16 4:14 PM) A/G Ratio [0.7-1.6] 0.9 (08/22/16 4:14 PM) Calcium Lvl 8.3 mg/dL [8.5-10.5 mg/dL] *LOW* (08/22/16 4:14 PM) ALT [0-65 unit/L] 22 unit/L (08/22/16 4:14 PM) AST [0-37 unit/L] 27 unit/L (08/22/16 4:14 PM) Alk Phos [39-136 73 unit/L unit/L] (08/22/16 4:14 PM) Bili Total [0.2-1.3 0.5 mg/dL mg/dL] (08/22/16 4:14 PM) 1Result Comment: The eGFR is calculated using the [...] from the National Kidney Disease Education Program ( NKDEP) which additionally recommends that when the eGFR is used in patients with extremes of body mass index for purposes of drug dosing, the eGFR should be mul tiplied by the estimated BMI. URINE CHEM Most recent to 1 2 oldest [Reference Range]: U Preg [Negative] Negative Negative (08/28/16 7:38 AM) (08/22/16 4:14 PM) HEMATOLOGY Most recent to 1 2 oldest [Reference Range]: WBC [3.7-10.4 K/CMM] 9.5 K/CMM (08/22/16 4:14 PM) RBC [4.20-5.40 4.16 M/CMM M/CMM] *LOW* (08/22/16 4:14 PM) Hgb [12.0-16.0 g/dL] 12.6 g/dL (08/22/16 4:14 PM) Hct [36.0-48.0 %] 37.5 % (08/22/16 4:14 PM) MCV [80.0-98.0 fL] 90.3 fL (08/22/16 4:14 PM) MCH [27.0-31.0 pg] 30.4 pg (08/22/16 4:14 PM) MCHC [32.0-36.0 33.7 g/dL g/dL] (08/22/16 4:14 PM) RDW [11.5-14.5 %] 12.8 % (08/22/16 4:14 PM) Platelet [133-450 331 K/CMM K/CMM] (08/22/16 4:14 PM) MPV [7.4-10.4 fL] 7.6 fL (08/22/16 4:14 PM) Segs [45.0-75.0 %] 56.7 % (08/22/16 4:14 PM) Lymphocytes 33.7 % [20.0-40.0 %] (08/22/16 4:14 PM) Monocytes [2.0-12.0 6.6 % %] (08/22/16 4:14 PM) Eosinophils [0.0-4.0 1.7 % %] (08/22/16 4:14 PM) Basophils [0.0-1.0 1.3 % %] *HI* (08/22/16 4:14 PM) Segs-Bands # 5.4 K/CMM [1.5-8.1 K/CMM] (08/22/16 4:14 PM) Lymphocytes # 3.2 K/CMM [1.0-5.5 K/CMM] (08/22/16 4:14 PM) Monocytes # [0.0-0.8 0.6 K/CMM K/CMM] (08/22/16 4:14 PM) Eosinophils # 0.2 K/CMM [0.0-0.5 K/CMM] (08/22/16 4:14 PM) Basophils # [0.0-0.2 0.1 K/CMM K/CMM] (08/22/16 4:14 PM) PT [12.0-14.7 12.0 seconds seconds] (08/22/16 4:14 PM) INR [0.85-1.17] 0.87 (08/22/16 4:14 PM) PTT [22.9-35.8 28.0 seconds seconds] (08/22/16 4:14 PM) Immunizations No data available for this section Procedures Procedure Date Related Diagnosis Body Site Biopsy of breast Social History Social History Type Response Alcohol Current, Type Wine. Frequency: 3-5 times per week. Smoking Status Never smoker; Exposure to Tobacco Smoke None; Cigarette Smoking Last 365 Days No; Reg Smoking Cessation Counseling No Assessment and Plan No data available for this section
--- OUTSIDE RECORDS SUMMARY | 2018-03-16 07:35 | XMS REPORT | Summary of Care ---
Author Author [facility] Out[facility] Outpatient Imaging - [facility] Address Unknown Phone Unavailable Encounter HQ Virginiantr_summer(FIN) [id number] Date(s): 07/17/16 - 07/17/16 [facility] Outpatient [facility] - [facility] [address] [phone] Discharge Disposition: Home or Self Care Attending [...]
--- OUTSIDE RECORDS SUMMARY | 2018-03-16 07:35 | XMS REPORT | Summary of Care ---
Author Author [facility] Out[facility] Imaging - [facility] Address Unknown Phone Unavailable Encounter HQ Rashadr_summer(FIN) [id number] Date(s): 08/04/16 - 08/04/16 [facility] [address] [phone] Discharge Disposition: Home or Self Care Attending [...]
--- OUTSIDE RECORDS SUMMARY | 2018-03-16 07:41 | XMS REPORT | Clinical Summary ---
Author Author [facility] Organization [facility] Address Unknown Phone Unavailable Care Team Providers Care Syruper Name Role Phone Aftab Dubois MD PCP [...] INFLUENZA VACCINE 12/30/2017 Implants Implanted Type Area Clinical Laboratory Manager Device Expiration Model / Identifier Date Serial / Lot Port Imlpntbl Smart Port W/ Dtchd Implantabl N/A: N/A ANGIODYNAMICS [id number] 0.4ml 6.6fr 55cm 1.4x2.2mm - [employer] / [id number] Ports or / Implanted: 09/15/2016 (Quantity not [...] monitored by a registered nurse.The physician intraservice uwbz-mg-xlqc time with the patient was 20 minutes. Fluoroscopy time:0.1 minutes number of fluoroscopic images obtained: 2 IMPRESSION: 1. Removal of aRIGHT chest port 2. Conscious sedation was given as described above. 3. Constant nurse observation was performed. [id number] Procedure Note Hm Interface, Radiology Results Incoming [...] by a registered nurse. The physician intraservice hljh-sg-oubt time with the patient was 20 minutes. Fluoroscopy time: 0.1 minutes number of fluoroscopic images obtained: 2 IMPRESSION: 1. Removal of aRIGHT chest port 2. Conscious sedation was given as described above. 3. Constant nurse observation was performed. [id number] Performing Organization Address City/[facility]/Zipcode Phone Number [facility] [address] [place] [address] * Estimated GFR (08/27/2017 9:35 AM) GFR Non Af Amer 67 mL/min/1.73 m2 [facility] DEPARTMENT OF PATHOLOGY AND GENOMIC MEDICINE GFR Af Amer 81 mL/min/1.73 m2 [facility] DEPARTMENT OF Comment: PATHOLOGY AND Chronic [...] Americans. Specimen Plasma specimen Performing Organization Address City/[facility]/Zipcode Phone Number [address] [place] [address] PATHOLOGY AND GENOMIC MEDICINE * Prothrombin time with INR (08/27/2017 9:35 AM) Prothrombin time 12.7 12.0 - 15.0 sec [facility] DEPARTMENT OF PATHOLOGY AND GENOMIC MEDICINE INR 0.9 [facility] DEPARTMENT OF Comment: PATHOLOGY AND The International Normalized GENOMIC MEDICINE Ratio (INR) is a therapeutic monitoring tool for patients who are stable on oral anticoagulant therapy. An INR of 2.0-3.0 is suggested for deep vein thrombosis/pulmonary embolism. Specimen Blood Performing Organization Address City/[facility]/Zipcode Phone Number [address] [place] [address] [facility] * CBC with platelet and differential (08/27/2017 9:35 AM) WBC 5.18 4.50 - 11.00 k/uL [facility] DEPARTMENT OF PATHOLOGY AND GENOMIC MEDICINE RBC 4.01 (L) 4.20 - 5.50 m/uL [facility] OF PATHOLOGY AND GENOMIC MEDICINE HGB 12.2 12.0 - 16.0 g/dL [facility] DEPARTMENT OF PATHOLOGY AND GENOMIC MEDICINE HCT 36.7 (L) 37.0 - 47.0 % [facility] DEPARTMENT OF PATHOLOGY AND GENOMIC MEDICINE MCV 91.5 82.0 - 100.0 fL [facility] DEPARTMENT OF PATHOLOGY AND GENOMIC MEDICINE MCH 30.4 27.0 - 34.0 pg [facility] DEPARTMENT OF PATHOLOGY AND GENOMIC MEDICINE MCHC 33.2 31.0 - 37.0 g/dL [facility] DEPARTMENT OF PATHOLOGY AND GENOMIC MEDICINE RDW - SD 41.9 37.0 - 55.0 fL [facility] DEPARTMENT OF PATHOLOGY AND GENOMIC MEDICINE MPV 8.7 (L) 8.8 - 13.2 fL [facility] DEPARTMENT OF PATHOLOGY AND GENOMIC MEDICINE Platelet count 255 150 - 400 k/uL [facility] DEPARTMENT OF PATHOLOGY AND GENOMIC MEDICINE Nucleated RBC 0.00 /100 WBC [facility] DEPARTMENT OF PATHOLOGY AND GENOMIC MEDICINE Neutrophils 62.6 39.0 - 69.0 % [facility] DEPARTMENT OF PATHOLOGY AND GENOMIC MEDICINE Lymphocytes 29.5 25.0 - 45.0 % [facility] DEPARTMENT OF PATHOLOGY AND GENOMIC MEDICINE Monocytes 5.8 0.0 - 10.0 % [facility] DEPARTMENT OF PATHOLOGY AND GENOMIC MEDICINE Eosinophils 1.7 0.0 - 5.0 % [facility] DEPARTMENT OF PATHOLOGY AND GENOMIC MEDICINE Basophils 0.4 0.0 - 1.0 % [facility] DEPARTMENT OF PATHOLOGY AND GENOMIC MEDICINE Specimen Blood Performing Organization Address City/[facility]/Zipcode Phone Number [place] [address] [place] [address] PATHOLOGY AND [employer] [facility] * hCG qualitative, serum screen (08/27/2017 9:35 AM) hCG qualitative, serum NegativeComment: [facility] DEPARTMENT OF [id number] PATHOLOGY AND GENOMIC MEDICINE Specimen Blood Performing Organization Address [facility]/Zipcode Phone Number [facility] [address] [place] [address] PATHOLOGY AND GENOMIC MEDICINE * Basic metabolic panel (08/27/2017 9:35 AM) Sodium 142 135 - 148 mEq/L [facility] DEPARTMENT OF PATHOLOGY AND GENOMIC MEDICINE Potassium 4.7 3.5 - 5.0 mEq/L [facility] DEPARTMENT OF PATHOLOGY AND GENOMIC MEDICINE Chloride 104 98 - 112 mEq/L [facility] DEPARTMENT OF PATHOLOGY AND GENOMIC MEDICINE CO2 27 24 - 31 mEq/L [facility] DEPARTMENT OF PATHOLOGY AND GENOMIC MEDICINE Anion gap 11 7 - 15 mEq/L [facility] DEPARTMENT OF Comment: PATHOLOGY AND Starting from August [facility] , anion gap calculation no longer incorporates potassium. Please note the change. BUN 14 6 - 20 mg/dL [facility] DEPARTMENT OF PATHOLOGY AND GENOMIC MEDICINE Creatinine 0.9 0.5 - 0.9 mg/dL [facility] DEPARTMENT OF PATHOLOGY AND GENOMIC MEDICINE Glucose 105 (H) 65 - 99 mg/dL [facility] DEPARTMENT OF PATHOLOGY AND GENOMIC MEDICINE Calcium 9.3 8.3 - 10.2 mg/dL [facility] DEPARTMENT OF PATHOLOGY AND GENOMIC MEDICINE Specimen Plasma specimen Performing Organization Address City/[facility] Phone Number [facility] [place] [address] [place] [address] PATHOLOGY AND GENOMIC MEDICINE after 02/24/2017 Insurance Payer Benefit Subscriber ID Type Phone Address Plan / Group BCBS BCBS xxxxxxxxxxxx PPO CHOICE PPO/CONSUELO STORY Work: [id number] [place] [id number] Home:
--- NOTE | 2018-03-24 23:41 | Operative Report ---
DATE OF PROCEDURE: February 25, 2018 PREOPERATIVE DIAGNOSES 1. History of left breast cancer. 2. Acquired absence of left breast. 3. Wound dehiscence of left breast. POSTOPERATIVE DIAGNOSES: 1. History of left breast cancer. 2. Acquired absence of left breast. 3. Wound dehiscence of left breast. PROCEDURES PERFORMED 1. Removal of left breast tissue spray dry operator. 2. Left breast reconstruction with latissimus dorsi pedicled flap and tissue spray dry operator. [place] CPX 4 medium height tissue spray dry operator 550 mL, filled to 100 mL. SN number [id number]. ANESTHESIA: General endotracheal. INDICATIONS FOR SURGERY: This is a 47-year-old female who last year was diagnosed with left breast cancer and underwent left mastectomy and reconstruction with tissue spray dry operator and AlloDerm. The patient subsequently had chemotherapy and radiation and earlier this year underwent exchange of her left ruptured tissue spray dry operator with a new tissue spray dry operator and AlloDerm. Patient is currently presenting with wound dehiscence of left breast and requires coverage of the irradiated left breast skin with latissimus dorsi pedicled flap as well as placement of a new tissue spray dry operator. The risks, alternatives, and possible complications of the above procedures were explained to the patient. This include, but are not limited to, bleeding, infection, scarring, breast symmetry, wound dehiscence, exposure or failure of tissue spray dry operator, seroma formation, latissimus dorsi flap necrosis, capsular contracture, skin flap necrosis, breast asymmetry, unsatisfactory aesthetic result, and possible need for further surgery. The patient had an opportunity to ask questions and have her questions answered, and agreed to proceed with the proposed procedure. PROCEDURE IN DETAIL: The patient was marked in the preoperative holding area. She was then taken to the operating room and placed supine on the operating table. After adequate general anesthesia, a Boo was placed and the patient was placed in the lateral decubitus position. The preoperative markings were rechecked and the patient was marked for latissimus dorsi flap reconstruction of the left side with a flap of 7 x 14 cm skin paddle. The patient was then prepped and draped in the usual surgical fashion. An incision was then made 1st along the previous mastectomy incision and the exposed necrotic skin was resected. The tissue spray dry operator, which was still intact, was removed. The breast pocket was then irrigated with normal saline with antibiotic solution and the residual AlloDerm was removed. Extensive capsulotomy was then performed with the help of the Bovcase, Peg and Jasper retractor, as well as headlight. The pocket was again irrigated with normal saline with antibiotic solution and checked for hemostasis and then packed with a saline soaked lap. Attention was then turned to the patient's left back. The preoperative markings for the latissimus dorsi pedicled flap reconstruction were rechecked. Again, the flap size was 7 x 14 cm and the incisions were created around the skin island with #10 blade. The skin flaps were then elevated at the level of the subcutaneous fat both anteriorly and posteriorly above the latissimus dorsi muscle. The incisions were beveled to maintain a layer of fat over the latissimus muscle and provide extra bulk for the flap and improve contouring. The insertion of the latissimus muscles was then incised circumferentially with the Bovie and the flap was elevated. The plane of dissection was then identified beneath the latissimus muscle yet superficial to the remaining musculature of the posterior thorax. The latissimus muscle was then elevated from its origin proceeding from distal to proximal stent and then medial. Caution was exercised to identify the medial and lateral rows of the segmental arteries that feed the muscles. These perforators that arise from the lumbar and intercostal arteries were ligated with medium clips to ensure hemostasis and to prevent a postoperative hematoma. The space between the latissimus dorsi muscle and the serratus anterior muscle was enlarged with blunt dissection and caution was observed not to dissect under the serratus muscle, but between the serratus and the latissimus dorsi muscle. Once the latissimus was from the serratus, the pedicle became visible as the flap was elevated towards the axilla. The flap dissection continued approximately to the level of the branches from the serratus anterior muscle. Once the flap was completely elevated, attention was turned anteriorly. A 4- to 5-cm pocket was created between the breast pocket and the latissimus dorsi dissection. Once the tunnel was created, the skin paddle was sutured to the muscle with 3-0 Vicryl suture and then carefully tunneled through the tunnel connecting the breast pocket and the latissimus dorsi donor site pocket. Once the latissimus dorsi flap was tunneled, it was placed under the mastectomy flaps and left to recover its blood supply while the donor site was closed. The donor site was irrigated with normal saline with antibiotic solution and checked for hemostasis. A #10 round Hemovac drain was placed under the latissimus dorsi donor site exiting anteriorly and inferiorly and sutured in place with a 2-0 nylon suture. The donor site was then closed with interrupted 2-0 Vicryl sutures in fascia, INSORB stapler in subcutaneous tissue and a running subcuticular 3-0 PDS suture. After the completion of the wound closure of the donor site, attention was turned again to the anterior portion of the left breast. The latissimus dorsi flap was inset by suturing it along the inframammary fold with interrupted 3-0 Vicryl sutures. The new tissue spray dry operator which was [place] CPX 4, medium height, 550 mL, was then emptied from all the air and filled with 100 mL of normal injectable saline. It was placed under the latissimus dorsi flap and the pectoralis major muscle. The pectoralis major muscle was then sutured to the latissimus dorsi flap with interrupted 3-0 Vicryl sutures. A #10 flat GRAHAM was then placed under the mastectomy flaps and above the latissimus dorsi flap and sutured in place with 2-0 nylon suture exiting laterally along the inframammary fold. The latissimus dorsi flap was then inset and sutured to the mastectomy skin flaps with interrupted 3-0 Vicryl sutures and a running subcuticular 3-0 PDS suture. At the end of the case, the latissimus dorsi flap appeared viable. The breast skin flaps and the latissimus dorsi donor site flaps appeared viable as well. The donor site was covered with Coverlet and the latissimus dorsi flap was covered with Xeroform and ABD pads. The Boo was discontinued before the end of the case. The patient tolerated the procedure well. There were no immediate complications. The needle and instrument count was correct at the end of the case and she was transferred, extubated to the recovery room. Job#: [id number] STEVEN
== END 2018-02-26 13:46 | disposition home or self-care (01) ==
LOC: OR 06:26 → PACU V 14:07 → MED/SURG 14:59
PROVIDERS: ADMIT Plastic Surgery; ATTEND Plastic Surgery
DX: T81.32XA Disruption of internal operation (surgical) wound, not elsewhere classified, initial encounter (principal); Z85.3 Personal history of malignant neoplasm of breast; Z90.12 Acquired absence of left breast and nipple; E03.9 Hypothyroidism, unspecified; E78.00 Pure hypercholesterolemia, unspecified; I10 Essential (primary) hypertension; Z88.8 Allergy status to other drugs, medicaments and biological substances; Z91.048 Other nonmedicinal substance allergy status
CPT/HCPCS: 19340; 19361; 36415; 80053; 81025; 85025; 85610; 85730; 99070; G0378 ×2; J0690; J1100; J1170; J2001; J2250; J2405; J7040

== ENCOUNTER → 2018-05-06 | Day surgery (SDC) | payer BC ==
[~2018-05-06] MED LIST changes: +AMOXICILLIN; +BACITRACIN 50,000 UNIT VIAL ONE; +CEFAZOLIN SOD 2 GM/D5W 50ML 50 ML IV ONE; +CLINDAMYCIN HC150 MG PO; +CYCLOBENZAPRINE5 MG PO; +DEXAMETHASONE SOD PHOS INJ 4 MG/ML VIAL ONE; +EPHEDRINE SULFATE INJ 50 MG/10 ML SYR ONE; +FENTANYL CITRATE/PF 100MCG/2 ML INJ ONE; +GLYCOPYRROLATE INJ 1MG/ 5 ML SYR ONE; +HYDROCODONE/APAP 10MG-325MG TAB ONE; +KETOROLAC TROMETHAMINE 30 MG/ML VIAL ONE; +LIDOCAINE HCL 2% LOCAL INJ 5 ML SDV VIAL INJ ONE; +MIDAZOLAM HCL 2 MG/2 ML VIAL ONE; +NEOSTIGMINE 5 MG/5ML SYR ONE; +NORCO 10-325 T1 EACH PO; +ONDANSETRON HCL INJ 2MG/ML 2ML 2 MG/ML VIAL ONE; +PROPOFOL IV EMULSION 10 MG/ML 20 ML VIAL ONE; +ROCURONIUM BROMIDE 10 MG/ML 5ML VIAL ONE; +SEVOFLURANE INHAL SOLN 250 ML PEN BTL ONE
--- OUTSIDE RECORDS SUMMARY | 2018-05-06 06:35 | XMS REPORT | Clinical Summary ---
Author Author [facility]ra [facility] Organization [facility] Address Unknown Phone Unavailable Care Team Providers Care Inspector Hairspring Truing Name Role Phone Aftab Dubois MD PCP Allergies Comments Active Allergy Reactions Severity Noted Date STERI STRIP-BLISTER Other Other (See 09/15/2016 Comments) Medications End Date Status Medication Sig Dispensed Refills Start Date Active atenolol (TENORMIN) 50 MG Take 50 mg by 0 tablet mouth daily. Active atorvastatin (LIPITOR) 40 Take 40 mg by 0 MG tablet mouth nightly. Active buPROPion SR (WELLBUTRIN Take 150 mg 0 SR) 150 MG 12 hr tablet by mouth daily. Active cetirizine (ZyrTEC) 10 MG Take 10 mg by 0 tablet mouth daily. Active meloxicam (MOBIC) 7.5 mg Take 7.5 mg 0 tablet by mouth daily. Active montelukast (SINGULAIR) Take 10 mg by 0 10 mg tablet mouth nightly. Active omeprazole (PriLOSEC) 40 Take 40 mg by 0 MG capsule mouth daily. Active traMADol-acetaminophen Take 1 tablet 0 (ULTRACET) 37.5-325 mg by mouth per tablet every 6 (six) hours as needed for moderate pain. Active tamoxifen (NOLVADEX) 20 Take by mouth 0 MG chemo tablet daily. Active cholecalciferol, vitamin Take 1,000 0 D3, (VITAMIN D3) 1,000 Units by unit tablet mouth daily. Active gabapentin (NEURONTIN) Take 300 mg 0 300 mg capsule by mouth nightly - one time. Active melatonin 10 mg capsule Take by 0 mouth. 08/27/2017 Discontinued cyclobenzaprine Take 10 mg by 0 (FLEXERIL) 10 mg tablet mouth 3 (three) times a day as needed for muscle spasms. 08/27/2017 Discontinued HYDROcodone-acetaminophen Take 1 tablet 0 (NORCO) 10-325 mg per by mouth tablet every 6 (six) hours as needed for moderate pain. Active Problems Not on file Encounters Care Team Description Date Type Specialty Silver Reinoso MD Arthralgia of hip, unspecified laterality (Primary Dx) 09/01/2017 Transcribe Access Orders Chelsy Zamarripa MD Personal history of malignant neoplasm of breast 08/27/2017 Hospital Radiology Encounter Chelsy Zamarripa MD Personal history of malignant neoplasm of breast (Primary Dx) 07/30/2017 Transcribe Access Orders after 05/05/2017 Family History Medical History Relation Name Comments Basal cell carcinoma Brother Breast cancer Cousin Stomach cancer Cousin Melanoma Mother Heart attack Paternal Grandfather Prostate cancer Paternal Uncle Relation Name Status Comments Brother Cousin Cousin Mother Paternal Grandfather Paternal Uncle Social History Date Tobacco Use Types Packs/Day Years Used Never Smoker Smokeless Tobacco: Never Used Alcohol Use Drinks/Week oz/Week Comments Yes 1 Glasses of 0.6 4 GLASS OF WINE PER WEEK wine Sex Assigned at Date Recorded Not on file Industry Job Start Date Occupation Not on file Not on file Not on file Travel End Travel History Travel Start No recent travel history available. Last Filed Vital Signs Time Taken Vital Sign Reading 08/27/2017 1:45 PM CDT Blood Pressure 153/71 08/27/2017 1:45 PM CDT Pulse 69 08/27/2017 12:45 PM CDT Temperature 37.2 C (99 F) 08/27/2017 1:45 PM CDT Respiratory Rate 18 08/27/2017 1:45 PM CDT Oxygen Saturation 97% - Inhaled Oxygen - Concentration 08/27/2017 9:51 AM CDT Weight 100 kg (221 lb 4.8 oz) 08/27/2017 9:51 AM CDT Height 167.6 cm (5' 6") 08/27/2017 9:51 AM CDT Body Mass Index 35.72 Plan of Treatment Health Maintenance Due Date Last Done Comments CERVICAL CANCER SCREENING 10/20/1991 INFLUENZA VACCINE 12/30/2017 HEPATITIS B VACCINES Aged Out No longer eligible based on patient's age to complete this topic IPV VACCINES Aged Out No longer eligible based on patient's age to complete this topic MENINGOCOCCAL VACCINE Aged Out No longer eligible based on patient's age to complete this topic Implants Device Identifier Shelf Expiration Date Model / Serial / Lot Implanted Type Area Manufactur er [id number] / / Port Imlpntbl Smart Port W/ Dtchd Implantabl N/A: N/A ANGIODYNAM 0.4ml 6.6fr 55cm 1.4x2.2mm - e [employer] [id number] Ports or Implanted: 09/15/2016 (Quantity not Accessorie on file) s Procedures Comments Procedure Name Priority Date/Time Associated Diagnosis IR PORT REMOVAL Routine 08/27/2017 Personal history of 1:01 PM CDT malignant neoplasm of breast ZZESTIMATED GFR Routine 08/27/2017 9:35 AM CDT HCG QUALITATIVE, SERUM Routine 08/27/2017 SCREEN 9:35 AM CDT PROTHROMBIN TIME WITH INR Routine 08/27/2017 9:35 AM CDT HC COMPLETE BLD COUNT Routine 08/27/2017 W/AUTO DIFF 9:35 AM CDT BASIC METABOLIC PANEL Routine 08/27/2017 9:35 AM CDT after 05/05/2017 Results * IR Port Removal (08/27/2017 1:01 PM CDT) Narrative Performed At EXAMINATION:IR PORT REMOVAL HM [...] monitored by a registered nurse.The physician intraservice rfom-jl-gsrw time with the patient was 20 minutes. Fluoroscopy time:0.1 minutes number of fluoroscopic images obtained: 2 IMPRESSION: 1. Removal of aRIGHT chest port 2. Conscious sedation was given as described above. 3. Constant nurse observation was performed. [id number] Procedure Note Interface, Radiology Results Incoming - 08/27/2017 5:10 [...] by a registered nurse. The physician intraservice legs-gi-pocu time with the patient was 20 minutes. Fluoroscopy time: 0.1 minutes number of fluoroscopic images obtained: 2 IMPRESSION: 1. Removal of aRIGHT chest port 2. Conscious sedation was given as described above. 3. Constant nurse observation was performed. [id number] Performing Organization Address City/[facility]/Zipcode Phone Number [facility] [address] [place] [address] * Estimated GFR (08/27/2017 9:35 AM CDT) GFR Non Af Amer 67 mL/min/1.73 m2 [facility] DEPARTMENT OF PATHOLOGY AND GENOMIC MEDICINE GFR Af Amer 81 mL/min/1.73 m2 [facility] DEPARTMENT OF Comment: PATHOLOGY AND [...] Americans. Specimen Plasma specimen Performing Organization Address City/[facility]/Zipcode Phone Number [facility] [place] [address] [place] [place] [address] PATHOLOGY AND GENOMIC MEDICINE * Prothrombin time with INR (08/27/2017 9:35 AM CDT) Prothrombin time 12.7 12.0 - 15.0 sec [facility] DEPARTMENT OF PATHOLOGY AND GENOMIC MEDICINE INR 0.9 [facility] DEPARTMENT OF Comment: PATHOLOGY AND The International Normalized GENOMIC MEDICINE Ratio (INR) is a therapeutic monitoring tool for patients who are stable on oral anticoagulant therapy. An INR of 2.0-3.0 is suggested for deep vein thrombosis/pulmonary embolism. Specimen Blood Performing Organization Address City/State/Zipcode Phone Number [facility] [place] [address] [place] [address] PATHOLOGY AND GENOMIC MEDICINE * CBC with platelet and differential (08/27/2017 9:35 AM CDT) WBC 5.18 4.50 - 11.00 k/uL [facility] DEPARTMENT OF PATHOLOGY AND GENOMIC MEDICINE RBC 4.01 (L) 4.20 - 5.50 m/uL [facility] DEPARTMENT OF PATHOLOGY AND GENOMIC MEDICINE HGB 12.2 12.0 - 16.0 g/dL [facility] DEPARTMENT OF PATHOLOGY AND GENOMIC MEDICINE HCT 36.7 (L) 37.0 - 47.0 % [facility] DEPARTMENT OF PATHOLOGY AND GENOMIC MEDICINE MCV 91.5 82.0 - 100.0 fL [facility] DEPARTMENT OF PATHOLOGY AND GENOMIC MEDICINE MCH 30.4 27.0 - 34.0 pg [facility] DEPARTMENT OF PATHOLOGY AND GENOMIC MEDICINE MCHC 33.2 31.0 - 37.0 g/dL [facility] DEPARTMENT OF PATHOLOGY AND GENOMIC MEDICINE RDW - SD 41.9 37.0 - 55.0 fL [facility] DEPARTMENT OF PATHOLOGY AND GENOMIC MEDICINE MPV 8.7 (L) 8.8 - 13.2 fL [facility] DEPARTMENT OF PATHOLOGY AND GENOMIC MEDICINE Platelet count 255 150 - 400 k/uL [facility] DEPARTMENT OF PATHOLOGY AND GENOMIC MEDICINE Nucleated RBC 0.00 /100 WBC [facility] DEPARTMENT OF PATHOLOGY AND GENOMIC MEDICINE Neutrophils 62.6 39.0 - 69.0 % [facility] DEPARTMENT OF PATHOLOGY AND GENOMIC MEDICINE Lymphocytes 29.5 25.0 - 45.0 % [facility] DEPARTMENT OF PATHOLOGY AND GENOMIC MEDICINE Monocytes 5.8 0.0 - 10.0 % [facility] DEPARTMENT OF PATHOLOGY AND GENOMIC MEDICINE Eosinophils 1.7 0.0 - 5.0 % [facility] DEPARTMENT OF PATHOLOGY AND GENOMIC MEDICINE Basophils 0.4 0.0 - 1.0 % [facility] DEPARTMENT OF PATHOLOGY AND GENOMIC MEDICINE Specimen Blood Performing Organization Address [facility] Phone Number [address] [place] [address] PATHOLOGY AND GENOMIC MEDICINE * hCG qualitative, serum screen (08/27/2017 9:35 AM CDT) hCG qualitative, serum NegativeComment: [facility] OF [id number] PATHOLOGY AND GENOMIC MEDICINE Specimen Blood Performing Organization Address [facility] Phone [place] [address] [place] [address] PATHOLOGY AND [facility] * Basic metabolic panel (08/27/2017 9:35 AM CDT) Sodium 142 135 - 148 mEq/L [facility] DEPARTMENT OF PATHOLOGY AND GENOMIC MEDICINE Potassium 4.7 3.5 - 5.0 mEq/L [facility] DEPARTMENT OF PATHOLOGY AND GENOMIC MEDICINE Chloride 104 98 - 112 mEq/L [facility] DEPARTMENT OF PATHOLOGY AND GENOMIC MEDICINE CO2 27 24 - 31 mEq/L [facility] DEPARTMENT OF PATHOLOGY AND GENOMIC MEDICINE Anion gap 11 7 - 15 mEq/L [facility] DEPARTMENT OF Comment: PATHOLOGY AND Starting from August [facility]INE , anion gap calculation no longer incorporates potassium. Please note the change. BUN 14 6 - 20 mg/dL [facility] DEPARTMENT OF PATHOLOGY AND GENOMIC MEDICINE Creatinine 0.9 0.5 - 0.9 mg/dL [facility] DEPARTMENT OF PATHOLOGY AND GENOMIC MEDICINE Glucose 105 (H) 65 - 99 mg/dL [facility] DEPARTMENT OF PATHOLOGY AND GENOMIC MEDICINE Calcium 9.3 8.3 - 10.2 mg/dL [facility] DEPARTMENT OF PATHOLOGY AND GENOMIC MEDICINE Specimen Plasma specimen Performing Organization Address [facility] Phone Number [address] [place] [address] PATHOLOGY AND GENOMIC MEDICINE after 05/05/2017 Insurance Payer Benefit Subscriber ID Type Phone Address Plan / Group BCBS BCBS xxxxxxxxxxxx PPO CHOICE PPO/CONSUELO NICKERSON PPO Advance Directives Patient has advance care planning documents on file. For more information, duc borrego contact: Ezra Montoya [address] [place] [address]
[2018-05-06 07:43] LABS: BASOPHILS % 0.5 % (0.0-1.0); EOSINOPHILS # (AUTO) 0.1 (0.0-0.4); EOSINOPHILS % 1.8 % (0.0-6.0); HEMATOCRIT 35.9 % (34.2-44.1); HEMOGLOBIN 11.7 g/dL (12.0-16.0); LYMPHOCYTES # (AUTO) 1.8 (1.0-3.2); MEAN CORPUSCULAR HGB CONC 32.6 g/dL (31-35); MEAN CORPUSCULAR VOLUME 88.9 fL (81-99); MONOCYTES # (AUTO) 0.5 (0.2-0.8); MONOCYTES % 7.8 % (4.4-11.3); NEUTROPHILS # (AUTO) 3.7 (2.1-6.9); NEUTROPHILS % 60.7 % (38.7-80.0); PLATELET COUNT 304 x10e3/uL (140-360); RED BLOOD COUNT 4.04 x10e6/uL (3.6-5.1); RED CELL DISTRIBUTION WIDTH 13.1 % (11.7-14.4)
[2018-05-06 08:04] LABS: INR 0.8; PROTHROMBIN TIME 11.9 seconds (11.9-14.5)
[2018-05-06 08:05] LABS: PARTIAL THROMBOPLASTIN TIME 26.4 seconds (23.8-35.5)
[2018-05-06 08:07] LABS: ALANINE AMINOTRANSFERASE 20 IU/L (0-55); ALBUMIN 3.6 g/dL (3.5-5.0); ALKALINE PHOSPHATASE 62 IU/L (40-150); ANION GAP 14.2 mmol/L (8-16); BLOOD UREA NITROGEN 11 mg/dL (7-26); BUN/CREATININE RATIO 14 (6-25); CALCIUM 8.8 mg/dL (8.4-10.2); CARBON DIOXIDE 22 mmol/L (22-29); CHLORIDE 107 mmol/L (98-107); CREATININE, SERUM 0.81 mg/dL (0.57-1.11); EST GLOMERULAR FILTRATION RATE > 60 ML/MIN (60-); GLUCOSE 109 mg/dL (74-118); POTASSIUM 4.2 mmol/L (3.5-5.1); SODIUM 139 mmol/L (136-145)
[2018-05-06 13:30] VITALS: BP 129/81
--- NOTE | 2018-06-03 01:42 | Operative Report ---
DATE OF PROCEDURE: May 06, 2018 PREOPERATIVE DIAGNOSES: 1. History of left breast cancer. 2. Acquired absence of left breast. 3. Right breast ptosis. 4. Breast asymmetry. POSTOPERATIVE DIAGNOSES: 1. History of left breast cancer. 2. Acquired absence of left breast. 3. Right breast ptosis. 4. Breast asymmetry. PROCEDURE PERFORMED: 1. Removal of left breast tissue prestidigitator. 2. Left breast capsulotomy. 3. Revision of left breast reconstruction. 4. Placement of bilateral silicone gel breast implants, cohesive in reconstruction. Implant on the left was Natrelle INSPIRA Cohesive SCX 560 mL, SN #[id number] and implant on the right was SCL Natrelle INSPIRA Cohesive 125 mL, SN #[id number]. 5. Right breast mastopexy. ANESTHESIA: General endotracheal. INDICATION FOR SURGERY: This is a 47-year-old female who last year underwent left breast mastectomy and reconstruction with tissue prestidigitator and later on with latissimus dorsi flap. Patient is currently presenting for removal of left breast tissue prestidigitator, left breast capsulotomy, revision of left breast reconstruction, placement of bilateral silicone gel implants, submuscular in reconstruction, and right breast mastopexy. The risks, alternatives, and possible complications of the above procedures were explained to the patient. These include, but are not limited to bleeding, infection, scarring, skin flap necrosis, capsular contracture, breast asymmetry, exposure or failure of silicone gel implant, wound dehiscence, loss of nipple sensation, nipple or skin flap necrosis, unsatisfactory esthetic result, and possible need for further surgery. The patient had an opportunity to ask questions and have her questions answered and agreed to proceed with the proposed procedure. PROCEDURE IN DETAIL: The patient was marked in the preoperative holding area. She was then taken to the operating room and placed supine on the operating table. After adequate general anesthesia, the patient's bilateral breasts were prepped and draped in the usual surgical fashion. Attention was then turned first to the patient's left breast. An incision was made along the previous mastectomy incision on the superior edge of the latissimus dorsi flap. Tissue was dissected down to the latissimus dorsi muscle and then the junction between the latissimus dorsi and pectoralis major muscle was found. A pocket was dissected between the 2, which extended down to the tissue prestidigitator. The tissue prestidigitator was deflated and removed. The breast pocket was then irrigated with normal saline with antibiotic solution. Extensive medial, superior, and lateral capsulotomy was performed with the help of the Bovie, [place], and Brimson retractor, as well as headlight. The pocket was irrigated with normal saline with antibiotic solution and checked for hemostasis again. The new silicone gel implant was then placed in the pocket. Before placement of the silicone gel implant, revision of left breast reconstruction was performed by placing capsulorrhaphy sutures to the lower outer edge of the breast pocket on the left breast where there seemed to be communication between the donor site of the latissimus dorsi flap and the tissue prestidigitator pocket. Revision was also performed of left breast reconstruction by excising a dog ear from the donor site for the latissimus dorsi flap, which was based on the left lateral breast. The dog ear was excised using #15 blade. Hemostasis was achieved with the Bovie, and the incision was closed with interrupted 3-0 Vicryl sutures and a running subcuticular 3-0 PDO Quill suture. Again, the left breast pocket was then irrigated with normal saline with antibiotic solution, and the new silicone gel implant was placed in the pocket. It was Natrelle INSPIRA Cohesive silicone implant SCX 560 mL. After placing the implant in the breast pocket, the latissimus dorsi muscle was sutured to the pectoralis major muscle with interrupted 3-0 Vicryl sutures. The mastectomy incision was closed with 2 layers of interrupted 3-0 Vicryl sutures and a running subcuticular 3-0 PDO Quill suture. Attention was then turned to the patient's right breast. The nipple-areolar complex was marked with cookie cutter at 42 mm diameter. A vertical incision was then made below the nipple-areolar complex with #15 blade. Tissue was dissected down to the chest wall with the help of the Bovie. The pectoralis major muscle was identified and a subpectoral pocket was developed with the help of the Bovie, [place] and Brimson retractor, as well as headlight. The pocket was irrigated with normal saline with antibiotic solution. A sizer was then placed in the pocket, and the patient was placed in the sitting position. When the sizer was filled to 125 mL, the 2 breasts appeared to be symmetric. The sizer was removed. The breast pocket was again irrigated with normal saline with antibiotic solution, and a new silicone gel breast implant was placed in reconstruction on the right side. It was SCL Natrelle INSPIRA Cohesive silicone implant 125 mL. The breast pocket was closed with interrupted 3-0 Vicryl sutures. The excess skin was then stapled and the patient was placed in the sitting position and the 2 breasts were checked for symmetry. They appeared to be symmetric. The excess skin was marked for resection. The pily were removed and the excess skin was de-epithelialized with the help of #15 blade and with the Bovie. The nipple-areolar complex was then sutured in its new superior location with interrupted 4-0 Vicryl sutures. The medial and lateral skin flaps were advanced to each other and sutured to each other with interrupted 3-0 Vicryl sutures. Excess skin was removed along the inframammary incision. All excess skin removed was sent to pathology for permanent. The inframammary incision was closed with interrupted 3-0 Vicryl sutures, a running subcuticular 3-0 PDO Quill suture, and a running 3-0 PDO Quill suture was placed along the vertical limb and around the nipple-areolar complex. At the end of the case, the 2 breasts appeared to be symmetric. The nipple-areolar complex on the right side and all skin flaps on both sides appeared viable. Steri-Strips were placed around the nipple-areolar complex. All incisions were covered with Xeroform and ABD pad. Coverlet was placed on the donor site revision of breast reconstruction and the patient's breasts were wrapped with a large 6-inch Aron wrap. She tolerated the procedure well. There were no immediate complications. The needle and instrument count was correct at the end of the case and she was transferred extubated to the recovery room. Job#: [id number]
== END | disposition home or self-care (01) ==
LOC: OR 06:32
PROVIDERS: ATTEND Plastic Surgery
DX: N65.1 Disproportion of reconstructed breast (principal); Z85.3 Personal history of malignant neoplasm of breast; Z90.12 Acquired absence of left breast and nipple; E03.9 Hypothyroidism, unspecified; I10 Essential (primary) hypertension; E78.5 Hyperlipidemia, unspecified; R01.0 Benign and innocent cardiac murmurs; Z91.048 Other nonmedicinal substance allergy status
CPT/HCPCS: 19316; 19340; 19342; 36415; 80053; 81025; 85025; 85610; 85730; 88305; 93005; J0690; J1100; J1885; J2001; J2250; J2405; J2704; J3490; 88307